=== PATIENT | male | born 1945 | race Caucasian/White ===

== ENCOUNTER 2022-12-10 13:32 | Observation (INO) | payer MEDICARE, OTHER, SELFPAY ==
[2022-12-10] VITALS (34 sets, daily range): BP systolic 135–187; BP diastolic 65–103; PULSE 56–85; RESP 13–14; TEMP 36.8; O2SAT 91–99; BMI 19.2
--- NOTE | 2022-12-10 13:44 | DI.CT.S_ITS ---
PROCEDURE: CT HEAD/BRAIN WO CON INDICATIONS: blurred vision (L) TECHNIQUE: Noncontrast 4.5 mm thick angled axial sections acquired from the foramen magnum to the vertex, with coronal and sagittal reformats. For radiation dose reduction, the following was used: automated exposure control, adjustment of mA and/or kV according to patient size. COMPARISON: None. FINDINGS: Image quality: Excellent. CSF spaces: Basal cisterns are patent. No extra-axial fluid collections. The ventricles are symmetric in size and shape. Brain: There is a focal cee-white junction region hemorrhage centered in the left posterior parieto-occipital region measuring 2.3 x 1.9 x 2.3 cm. There is mild surrounding vasogenic edema. There is no significant mass effect or shift. No other hemorrhages are identified. No identifiable masses are seen. . There is cerebral volume loss for age, with resultant ventricular and sulcal prominence. There are periventricular and deep white matter chronic small vessel ischemic changes. There is intracranial internal carotid artery atherosclerosis. Skull and face: Calvarium and visualized facial bones appear intact, without suspicious lesions. Sinuses: Visualized sinuses and mastoids are clear. IMPRESSION: 1. 2.3 cm maximum diameter parenchymal hemorrhage, centered in the left posterior parieto-occipital cee-white junction region. Differential diagnosis includes hypertensive hemorrhage versus amyloid angiopathy versus hemorrhagic mass. Comment: Findings were discussed with Dr. Brito at the time of study dictation. Dictated by: Zheng Braun M.D. on 12/10/2022 at 14:12 Approved by: Zheng Braun M.D. on 12/10/2022 at 14:17
[2022-12-10 14:22] LABS: Add Manual Diff / Slide Review NO; Basophils Absolute Auto 100 /uL (0-100); Basophils Percent Auto 0.8 % (0-2); Eosinophils Absolute Auto 100 /uL (0-450); Eosinophils Percent Auto 2.1 % (2-4); Hematocrit 41.5 % (41-53); Hemoglobin 14.3 g/dL (13.5-17.5); Lymphocytes Absolute Auto 1900 /uL (1100-4500); Lymphocytes Percent Auto 27.3 % (25-40); Mean Corpuscular HGB Conc 34.5 % (30-36); Mean Corpuscular Hemoglobin 32.4 PG (26-34); Mean Corpuscular Volume 94.1 fL (80-100); Monocytes Absolute Auto 700 /uL (0-900); Monocytes Percent Auto 9.4 % (3-14); Neutrophils Absolute Auto 4300 /uL (1500-7000); Neutrophils Percent Auto 60.4 % (50-75); Platelet Count 223 X10^3/uL (150-400); Red Blood Cell Count 4.41 X10^6/uL (4.5-5.9); White Blood Cell Count 7.1 X10^3/uL (4.5-11.0)
--- NOTE | 2022-12-10 14:27 | ED_ITS ---
HPI - Neuro Symptoms/Deficit <DO Eric Colon Last Filed: 12/12/22 12:36> General Chief Complaint: Neuro Symptoms/Deficit Stated Complaint: sent by blurred vision/headache T-7 Time Seen by Provider: 12/10/22 14:03 Source: patient Mode of arrival: Ambulatory Limitations: no limitations History of Present Illness HPI Narrative: This is a 77-year-old male with dyslipidemia who is not anticoagulated who comes with complaint of headache that occurred on 06 of December. Patient states he would about 5 hours headache behind his left eye and has had blurry vision since then. Patient states he is not really sure if it matters of his eyes are closed left versus right. He states he notices it with close vision or beating. He states he has had blurry vision 1 or 2 times a month in the past but never had a headache associated. Patient states no headache since then. He denies any chest pain, no shortness of breath, no nausea or vomiting. No numbness, tingling or weakness. He is had normal speech. No new facial droop. Patient has not had any issues with ambulation or gait. He is not had similar symptoms in the past. He denies any falls or trauma. Patient denies any aspirin, Plavix or other anticoagulants. He states he is had back surgery x2 he does have persistent neurogenic bladder, he has no sensation in the perineal area. 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 He states no known drug allergies. No tobacco, no alcohol, no illicit. Dr. Umm Sanchez is his primary care. On Anticoagulants: No Related Data Home Medications Medication Instructions Recorded Confirmed atorvastatin 10 mg tablet 10 mg 1XD 12/11/22 12/11/22 gabapentin 100 mg capsule 100 mg PRN Back Pain 12/11/22 Allergies Allergy/AdvReac Type Severity Reaction Status Date / Time No Known Drug Allergies Allergy Verified 12/10/22 13:42 Review of Systems <DO Eric Colon Last Filed: 12/12/22 12:36> Review of Systems ROS Unobtainable: All systems reviewed & are unremarkable except as noted in HPI and below Hematologic/Lymphatic On Anticoagulants: No Patient History <DO Eric Colon Last Filed: 12/12/22 12:36> Social History household members: spouse Smoking Status: Former smoker Smoking Status: Former smoker alcohol intake frequency: 0-2 drinks per day Substance Use Type: does not use Exam <Clair Brito DO - Last Filed: 12/12/22 12:36> Narrative Exam Narrative: GEN: Thin elderly male, alert and oriented x 3, patient appears to be in mild distress. HEENT: Atraumatic, pupils are equal round reactive to light, extraocular movements are intact, nares are clear, TMs are clear with no fluid, there is no conjunctival pallor. Throat is clear without any exudates, erythema, tonsillar enlargement or uvular deviation, no facial droop. HEART: Regular rate and rhythm without murmur, clicks, rubs. No carotid bruits, pulses are equal in upper and lower extremities LUNGS:Lungs clear to auscultation, no wheezes, rales, crackles, chest moves symmetrically ABD:bowel sounds normal, soft, non-tender, no guarding, rebound, rigidity, no masses noted, no hepatosplenomegaly :No CVA tenderness, [male/female exam] MSCL: Non-tender, no muscle atrophy, muscles strength 5/5 upper and lower extremities, full range of motion, normal gait NEURO:CN 2-12 intact, sensation normal, reflexes 2/4 upper and lower extremities. finger nose finger test normal, heel zaragoza test normal, romberg normal Initial Vital Signs Initial Vital Signs: Vital Signs Temperature 98.2 F 12/10/22 13:38 Pulse Rate 56 L 12/10/22 13:38 Respiratory Rate 14 12/10/22 13:38 Blood Pressure 186/85 H 12/10/22 13:38 Pulse Oximetry 99 12/10/22 13:38 Oxygen Delivery Method Room Air 12/10/22 13:38 <Josue Prescott DO - Last Filed: 12/11/22 03:15> Initial Vital Signs Initial Vital Signs: Vital Signs Temperature 98.2 F 12/10/22 13:38 Pulse Rate 56 L 12/10/22 13:38 Respiratory Rate 14 12/10/22 13:38 Blood Pressure 186/85 H 12/10/22 13:38 Pulse Oximetry 99 12/10/22 13:38 Oxygen Delivery Method Room Air 12/10/22 13:38 Scores <Clair Brito, DO - Last Filed: 12/12/22 12:36> GCS Stan coma scale eye opening: Spontaneous Rawson coma scale verbal response: Orientated Stan coma scale motor response: Obey commands Rawson coma scale total score: 15 NIH Stroke Scale Level of Conciousness: Alert, keenly responsive Ask month/age: Answers both questions correctly. Open/close eyes, close hand: Performs both tasks correctly Best gaze horizontal: Normal Visual santos: No visual loss Facial palsy: Normal symetrical movement Left arm drift: No drift for full 10 sec Right arm drift: No drift for full 10 sec Left leg drift: No drift for full 5 sec Right leg drift: No drift for full 5 sec Limb ataxia: Absent Sensory on face/arms/legs: Normal, no sensory loss Best language: No aphasia, normal Dysarthria: Normal Extinction or inattention: No abnormality Total NIH Stroke scale score: 0 <Josue Prescott DO - Last Filed: 12/11/22 03:15> GCS Stan coma scale total score: 15 NIH Stroke Scale Total NIH Stroke scale score: 0 Course <Clair Brito, DO - Last Filed: 12/12/22 12:36> Orders Ordered: Discontinued Medications Acetaminophen (Acetaminophen 325 Mg Tablet) 650 mg PO Q6H PRN PRN Reason: Fever/Mild Pain (1-3) Atorvastatin Calcium (Atorvastatin 20 Mg Tablet) 10 mg PO BEDTIME JIGNA Lisinopril (Lisinopril 5 Mg Tablet) 5 mg PO NOW ONE Stop: 12/10/22 15:00 Last Admin: 12/10/22 15:29 Dose: 5 mg Documented By: SB Naloxone HCl (Naloxone 0.4 Mg/Ml Vial) 0.2 mg IV Q2MIN PRN PRN Reason: Opiate Reversal Nifedipine (Nifedipine 30 Mg Tab Er) 30 mg PO NOW ONE Stop: 12/11/22 00:42 Last Admin: 12/11/22 02:13 Dose: 30 mg Documented By: CS Ondansetron HCl (Ondansetron 4 Mg/2 Ml Inj) 4 mg IV Q8HR PRN PRN Reason: Nausea And Vomiting Oxycodone HCl (Oxycodone Ir 5 Mg Tablet) 5 mg PO Q3H PRN PRN Reason: Pain, Moderate (4-6) Vital Signs Vital signs: Vital Signs - 8 hr 12/10/22 19:30 12/10/22 19:30 12/10/22 19:45 Pulse Rate 73 Blood Pressure 172/80 H 169/82 H Pulse Oximetry 98 12/10/22 19:45 12/10/22 20:00 12/10/22 20:00 Pulse Rate 66 65 Blood Pressure 157/68 H Pulse Oximetry 97 98 12/10/22 20:30 12/10/22 20:30 12/10/22 21:00 Pulse Rate 69 69 Blood Pressure 169/80 H Pulse Oximetry 97 97 12/10/22 21:01 12/10/22 21:01 12/10/22 21:30 Pulse Rate 68 Blood Pressure 187/86 H 146/73 H Pulse Oximetry 95 12/10/22 21:30 12/10/22 22:00 12/10/22 22:00 Pulse Rate 58 L 59 L Blood Pressure 146/77 H Pulse Oximetry 96 97 12/10/22 22:29 12/10/22 22:30 12/10/22 22:30 Pulse Rate 58 L 64 Blood Pressure 159/103 H Pulse Oximetry 95 96 12/10/22 23:00 12/10/22 23:01 12/10/22 23:01 Pulse Rate 75 75 Blood Pressure 142/74 H Pulse Oximetry 97 97 <Josue Prescott, DO - Last Filed: 12/11/22 03:15> Orders Ordered: Discontinued Medications Acetaminophen (Acetaminophen 325 Mg Tablet) 650 mg PO Q6H PRN PRN Reason: Fever/Mild Pain (1-3) Atorvastatin Calcium (Atorvastatin 20 Mg Tablet) 10 mg PO BEDTIME JIGNA Lisinopril (Lisinopril 5 Mg Tablet) 5 mg PO NOW ONE Stop: 12/10/22 15:00 Last Admin: 12/10/22 15:29 Dose: 5 mg Documented By: SB Naloxone HCl (Naloxone 0.4 Mg/Ml Vial) 0.2 mg IV Q2MIN PRN PRN Reason: Opiate Reversal Nifedipine (Nifedipine 30 Mg Tab Er) 30 mg PO NOW ONE Stop: 12/11/22 00:42 Last Admin: 12/11/22 02:13 Dose: 30 mg Documented By: CS Ondansetron HCl (Ondansetron 4 Mg/2 Ml Inj) 4 mg IV Q8HR PRN PRN Reason: Nausea And Vomiting Oxycodone HCl (Oxycodone Ir 5 Mg Tablet) 5 mg PO Q3H PRN PRN Reason: Pain, Moderate (4-6) Vital Signs Vital signs: Vital Signs - 8 hr 12/10/22 19:30 12/10/22 19:30 12/10/22 19:45 Pulse Rate 73 Blood Pressure 172/80 H 169/82 H Pulse Oximetry 98 12/10/22 19:45 12/10/22 20:00 12/10/22 20:00 Pulse Rate 66 65 Blood Pressure 157/68 H Pulse Oximetry 97 98 12/10/22 20:30 12/10/22 20:30 12/10/22 21:00 Pulse Rate 69 69 Blood Pressure 169/80 H Pulse Oximetry 97 97 12/10/22 21:01 12/10/22 21:01 12/10/22 21:30 Pulse Rate 68 Blood Pressure 187/86 H 146/73 H Pulse Oximetry 95 12/10/22 21:30 12/10/22 22:00 12/10/22 22:00 Pulse Rate 58 L 59 L Blood Pressure 146/77 H Pulse Oximetry 96 97 12/10/22 22:29 12/10/22 22:30 12/10/22 22:30 Pulse Rate 58 L 64 Blood Pressure 159/103 H Pulse Oximetry 95 96 12/10/22 23:00 12/10/22 23:01 12/10/22 23:01 Pulse Rate 75 75 Blood Pressure 142/74 H Pulse Oximetry 97 97 MDM - Neuro Symptoms/Deficit <Clair Brito, DO - Last Filed: 12/12/22 12:36> Lab Data 12/10/22 14:14 12/10/22 14:14 Labs: Lab Results 12/10/22 12/10/22 12/10/22 Range/Units 14:14 14:14 14:14 WBC 7.1 (4.5-11.0) X10^3/uL RBC 4.41 L (4.5-5.9) X10^6/uL Hgb 14.3 (13.5-17.5) g/dL Hct 41.5 (41-53) % MCV 94.1 (80-100) fL MCH 32.4 (26-34) PG MCHC 34.5 (30-36) % RDW 14.0 (11.6-14.8) % Plt Count 223 (150-400) X10^3/uL Neut % (Auto) 60.4 (50-75) % Lymph % (Auto) 27.3 (25-40) % Faulk % (Auto) 9.4 (3-14) % Eos % (Auto) 2.1 (2-4) % Baso % (Auto) 0.8 (0-2) % Neut # (Auto) 4300 (9771-2118) /uL Lymph # (Auto) 1900 (3756-2003) /uL Faulk # (Auto) 700 (0-900) /uL Eos # (Auto) 100 (0-450) /uL Baso # (Auto) 100 (0-100) /uL PT 11.5 (10.1-12.7) SECONDS INR 1.0 (0.9-1.3) APTT 37 H (26-36) SECONDS Sodium 138 (137-145) mmol/L Potassium 4.1 (3.4-5.1) mmol/L Chloride 103 (98-107) mmol/L Carbon Dioxide 26 (22-32) mmol/L BUN 21 H (9-20) mg/dL Creatinine 0.93 (0.66-1.25) mg/dL Estimated GFR > 60 (>60) mL/min BUN/Creatinine Ratio 22.6 H (6-22) Glucose 104 (80-110) mg/dL Calcium 8.5 (8.4-10.2) mg/dL Magnesium 2.0 (1.6-2.3) mg/dL Total Bilirubin 1.1 (0.2-1.3) mg/dL AST 33 (17-59) IU/L ALT 27 (<50) IU/L Alkaline Phosphatase 77 (38-126) U/L Total Creatine Kinase 212 H (55-170) U/L CK-MB (CK-2) 3.24 H (<2.37) ng/mL CK-MB (CK-2) Rel Index 1.5 (1.5-5.0) % Troponin I < 0.012 (0.01-0.034) ng/mL Total Protein 7.1 (6.3-8.2) g/dL Albumin 4.2 (3.5-5.0) g/dL Globulin 2.9 (1.7-4.1) g/dL Albumin/Globulin Ratio 1.4 (1.0-2.8) U Opiates 300ng/mL cut (Negative) Ur Oxycodone Screen (Negative) Urine Methadone Screen (Negative) Ur Barbiturates Screen (Negative) U Tricyclic Antidepress (Negative) Ur Phencyclidine Scrn (Negative) Ur Amphetamines Screen (Negative) U Methamphetamines Scrn (Negative) Ur MDMA Scrn (Ecstasy) (Negative) U Benzodiazepines Scrn (Negative) Urine Cocaine Screen (Negative) U Marijuana (THC) Screen (Negative) SARS-CoV-2 (PCR) (Negative) 12/10/22 12/10/22 Range/Units 14:21 15:53 WBC (4.5-11.0) X10^3/uL RBC (4.5-5.9) X10^6/uL Hgb (13.5-17.5) g/dL Hct (41-53) % MCV (80-100) fL MCH (26-34) PG MCHC (30-36) % RDW (11.6-14.8) % Plt Count (150-400) X10^3/uL Neut % (Auto) (50-75) % Lymph % (Auto) (25-40) % Faulk % (Auto) (3-14) % Eos % (Auto) (2-4) % Baso % (Auto) (0-2) % Neut # (Auto) (4036-4016) /uL Lymph # (Auto) (8681-3252) /uL Faulk # (Auto) (0-900) /uL Eos # (Auto) (0-450) /uL Baso # (Auto) (0-100) /uL PT (10.1-12.7) SECONDS INR (0.9-1.3) APTT (26-36) SECONDS Sodium (137-145) mmol/L Potassium (3.4-5.1) mmol/L Chloride (98-107) mmol/L Carbon Dioxide (22-32) mmol/L BUN (9-20) mg/dL Creatinine (0.66-1.25) mg/dL Estimated GFR (>60) mL/min BUN/Creatinine Ratio (6-22) Glucose (80-110) mg/dL Calcium (8.4-10.2) mg/dL Magnesium (1.6-2.3) mg/dL Total Bilirubin (0.2-1.3) mg/dL AST (17-59) IU/L ALT (<50) IU/L Alkaline Phosphatase (38-126) U/L Total Creatine Kinase (55-170) U/L CK-MB (CK-2) (<2.37) ng/mL CK-MB (CK-2) Rel Index (1.5-5.0) % Troponin I (0.01-0.034) ng/mL Total Protein (6.3-8.2) g/dL Albumin (3.5-5.0) g/dL Globulin (1.7-4.1) g/dL Albumin/Globulin Ratio (1.0-2.8) U Opiates 300ng/mL cut Negative (Negative) Ur Oxycodone Screen Negative (Negative) Urine Methadone Screen Negative (Negative) Ur Barbiturates Screen Negative (Negative) U Tricyclic Antidepress Negative (Negative) Ur Phencyclidine Scrn Negative (Negative) Ur Amphetamines Screen Negative (Negative) U Methamphetamines Scrn Negative (Negative) Ur MDMA Scrn (Ecstasy) Negative (Negative) U Benzodiazepines Scrn Negative (Negative) Urine Cocaine Screen Negative (Negative) U Marijuana (THC) Screen Negative (Negative) SARS-CoV-2 (PCR) Negative (Negative) Point of Care Testing Glucose POC 104 Urine Dip Bedside Urine Glucose Negative Bedside Urine Bilirubin - Negative Bedside Urine Ketone - Negative Urine Specific [place] 1.010 Bedside Urine Occult Blood - Negative Bedside Urine pH 6.5 Bedside Urine Protein - Negative Bedside Urine Urobilinogen - Negative Bedside Urine Nitrite - Negative Bedside Urine Leukocytes - Negative Esterase Imaging Data CT scan - head: Radiologist's Impression: Close Head CT (Signed) Zheng Braun - 12/10/22 Launch?[address] [address] [address] Scan Report Signed Patient: Eugene Contreras MR#: [id number] : 1945 Acct:[id number] Age/Sex: 77 / M Date of Service: 12/10/22 Loc: ED Accession Number: [id number] ?? Procedure: CT head/brain wo con Ordering Provider: Clair Brito D.O. PROCEDURE:? CT HEAD/BRAIN WO CON ? INDICATIONS:? blurred vision (L) ? TECHNIQUE:? Noncontrast 4.5 mm thick angled axial sections acquired from the foramen magnum to the vertex, with coronal and sagittal reformats.? For radiation dose reduction, the following was used:? automated exposure control, adjustment of mA and/or kV according to patient size.? ? COMPARISON:? None. ? FINDINGS:? Image quality:? Excellent.? ? CSF spaces:? Basal cisterns are patent.? No extra-axial fluid collections.? The ventricles are symmetric in size and shape.? ? Brain:? There is a focal cee-white junction region hemorrhage centered in the left posterior parieto-occipital region measuring 2.3 x 1.9 x 2.3 cm.? There is mild surrounding vasogenic edema.? There is no significant mass effect or shift.? No other hemorrhages are identified.? No identifiable masses are seen. .? There is cerebral volume loss for age, with resultant ventricular and sulcal prominence.? There are periventricular and deep white matter chronic small vessel ischemic changes.? There is intracranial internal carotid artery atherosclerosis.? ? Skull and face:? Calvarium and visualized facial bones appear intact, without suspicious lesions.? ? Sinuses:? Visualized sinuses and mastoids are clear.? ? IMPRESSION:? ? 1. 2.3 cm maximum diameter parenchymal hemorrhage, centered in the left posterior parieto-occipital cee-white junction region.? Differential diagnosis includes hypertensive hemorrhage versus amyloid angiopathy versus hemorrhagic mass. ? Comment: Findings were discussed with Dr. Brito at the time of study dictation.? ? ? Dictated by: Zheng Braun M.D. on 12/10/2022 at 14:12 ? ? Approved by: Zheng Braun M.D. on 12/10/2022 at 14:17?? CTA - brain/neck: Radiologist's Impression: [address] [address] [address] Scan Report Signed Patient: Eugene Contreras MR#: [id number] : 1945 Acct:[id number] Age/Sex: 77 / M Date of Service: 12/10/22 Loc: ED Accession Number: [id number] ?? Procedure: CT angio head and neck Ordering Provider: Clair Brito D.O. /PROCEDURE:? CT ANGIO HEAD AND NECK ? INDICATIONS:? intraparenchymal bleed ? TECHNIQUE:? After the administration of intravenous contrast, 1 mm thick sections acquired from the aortic arch through the [place] of [place].? Post-contrast 4.5 mm thick sections then re-acquired from the foramen magnum to the vertex.? 3-dimensional uewifef-qgrvarubn-rxfkcokaec (MIP) and/or volume rendering reformats were acquired of the central intracranial vasculature and neck separately. For radiation dose reduction, the following was used:? automated exposure control, adjustment of mA and/or kV according to patient size.? ? COMPARISON:? [facility], CT, CT HEAD/BRAIN WO CON, 12/10/2022, 13:52. ? FINDINGS:? Image quality:? Excellent.? ? BRAIN:? CSF spaces:? Ventricles are normal in size and shape.? Basal cisterns are patent.? No extra-axial fluid collections.? ? Brain:? No midline shift.? Again noted is a 2.3 cm maximum diameter cee-white junction region parenchymal hemorrhage in the left posterior parieto-occipital region, unchanged.? No new hemorrhages.? Age-related volume loss and small vessel ischemic change. ? Skull and face:? Calvarium and facial bones appear intact, without suspicious lesions.? Orbits appear normal.? ? Sinuses:? Sinuses and mastoids are clear.? ? HEAD CT ANGIOGRAPHY:? Anterior circulation:? Intracranial internal carotid arteries are normal in size and flow.? The flow within the paired anterior cerebral arteries is normal and symmetric.? The flow within the middle cerebral arteries is normal and symmetric.? The ante rior communicating artery is seen.? No aneurysms are seen.? ? Posterior circulation:? Visualized portions of the vertebral arteries demonstrate normal caliber, and join to form a normal appearing basilar artery.? Flow within the posterior cerebral arteries is normal and symmetric.? No aneurysms are seen.? ? NECK CT ANGIOGRAPHY:? Carotid system:? The great vessels demonstrate a conventional anatomy as they arise from the aortic arch.? The origins of the common carotid arteries appear patent.? The common carotid arteries demonstrate normal caliber and courses.? Bilateral carotid bifurcation calcifications.? Mild bilateral proximal internal carotid artery stenosis, less than 50%. ? Posterior circulation:? The origins of the vertebral arteries both appear widely patent.? The more superior extracranial portions of both vertebral arteries also demonstrate normal courses and calibers.? They join to form a normal appearing basilar artery.? ? Soft tissues:? Visualized neck soft tissues demonstrate no suspicious abnormalities.? Right apical pleural parenchymal scarring with calcification, likely representing sequelae of chronic granulomatous disease.? ? Bones:? No suspicious bony lesions.? Visualized cervical spine appears normally aligned.? IMPRESSION:? ? 1. Unchanged parenchymal hemorrhage, cee-white junction region, left parieto- occipital region. ? 2. Unremarkable CTA head. ? 3. Bilateral mild internal carotid artery stenosis, less than 50%.? ? Any quantitative measurements of stenosis were performed using NASCET criteria.? ? ? Dictated by: Zheng Braun M.D. on 12/10/2022 at 16:00 ? ? Approved by: Zheng Braun M.D. on 12/10/2022 at 16:06?? ECG Data Attestation: I personally reviewed and interpreted this ECG as follows: Prior ECG tracings: not available for review Interpretation: Sinus rhythm occasional PVCs. Rate of 60 9p are 160 QRS is 72 and QTC 420. Patient has PVC. No acute ST elevation depression noted. MDM Narrative Medical decision making narrative: This is a 77-year-old who presents with complaint of headache 1 week ago and blurry vision since. Headache was behind the left eye region. Patient does not have any acute neurologic changes. Head CT showed intraparenchymal bleed about 2.5 cm in size. Patient's blood pressure is elevated initially 180s trending down words upon initial arrival. Patient does not recall any trauma, he does not have any anticoagulation. Labs including CBC are overall reassuring, patient's BUN is 21, CK is 212 tropo francesca is negative. Coags are negative. Patient came in at 180 systolic but is 160 on recheck. Spoke with Dr. Villa, neuro surgery at [facility]. Patient she recommends repeat CT at 6 hours. she also recommend CT angio, goal of systolic pressure less than 160 typically but as we suspect this has been 5 days she would recommend starting p.o. enalapril 5 mg in ED based on current BPs, if patient continues to be above or elevated greater than a systolic of 160 can do IV nicardipine drip but otherwise would just try to move slowly 2 normotensive. If patient's blood pressures are controlled and CT angio is negative as well as non-con CT is stable at 6 hours patient could conceivably follow-up with them for MRI to evaluate for amyloid angiopathy or other cause. CT angio does not show any significant change. Plan for call back and follow-up after CT images are obtained. Patient signed out to Dr. Prescott while awaiting repeat head CT plan for follow up with neurology to discuss follow up to findings and next steps. 2050 - call back from Dr. Santiago ( Neuro). We have reviewed the case as well as imaging, noting the lack of interval change. Though there is no change he strongly recommends patient be admitted for strict blood pressure control and recommends MRI 2099 - hospitalist (Juliane) happy to accept Stroke Core Measures Contraindications for TPA in CVA: Active Internal Bleeding or Acute Fx (intraparenchymal bleed) <Josue Prescott, DO - Last Filed: 12/11/22 03:15> Lab Data Labs: Lab Results 12/10/22 12/10/22 12/10/22 Range/Units 14:14 14:14 14:14 WBC 7.1 (4.5-11.0) X10^3/uL RBC 4.41 L (4.5-5.9) X10^6/uL Hgb 14.3 (13.5-17.5) g/dL Hct 41.5 (41-53) % MCV 94.1 (80-100) fL MCH 32.4 (26-34) PG MCHC 34.5 (30-36) % RDW 14.0 (11.6-14.8) % Plt Count 223 (150-400) X10^3/uL Neut % (Auto) 60.4 (50-75) % Lymph % (Auto) 27.3 (25-40) % Faulk % (Auto) 9.4 (3-14) % Eos % (Auto) 2.1 (2-4) % Baso % (Auto) 0.8 (0-2) % Neut # (Auto) 4300 (7711-9321) /uL Lymph # (Auto) 1900 (5602-7780) /uL Faulk # (Auto) 700 (0-900) /uL Eos # (Auto) 100 (0-450) /uL Baso # (Auto) 100 (0-100) /uL PT 11.5 (10.1-12.7) SECONDS INR 1.0 (0.9-1.3) APTT 37 H (26-36) SECONDS Sodium 138 (137-145) mmol/L Potassium 4.1 (3.4-5.1) mmol/L Chloride 103 (98-107) mmol/L Carbon Dioxide 26 (22-32) mmol/L BUN 21 H (9-20) mg/dL Creatinine 0.93 (0.66-1.25) mg/dL Estimated GFR > 60 (>60) mL/min BUN/Creatinine Ratio 22.6 H (6-22) Glucose 104 (80-110) mg/dL Calcium 8.5 (8.4-10.2) mg/dL Magnesium 2.0 (1.6-2.3) mg/dL Total Bilirubin 1.1 (0.2-1.3) mg/dL AST 33 (17-59) IU/L ALT 27 (<50) IU/L Alkaline Phosphatase 77 (38-126) U/L Total Creatine Kinase 212 H (55-170) U/L CK-MB (CK-2) 3.24 H (<2.37) ng/mL CK-MB (CK-2) Rel Index 1.5 (1.5-5.0) % Troponin I < 0.012 (0.01-0.034) ng/mL Total Protein 7.1 (6.3-8.2) g/dL Albumin 4.2 (3.5-5.0) g/dL Globulin 2.9 (1.7-4.1) g/dL Albumin/Globulin Ratio 1.4 (1.0-2.8) U Opiates 300ng/mL cut (Negative) Ur Oxycodone Screen (Negative) Urine Methadone Screen (Negative) Ur Barbiturates Screen (Negative) U Tricyclic Antidepress (Negative) Ur Phencyclidine Scrn (Negative) Ur Amphetamines Screen (Negative) U Methamphetamines Scrn (Negative) Ur MDMA Scrn (Ecstasy) (Negative) U Benzodiazepines Scrn (Negative) Urine Cocaine Screen (Negative) U Marijuana (THC) Screen (Negative) SARS-CoV-2 (PCR) (Negative) 03/17/23 03/17/23 Range/Units 14:21 15:53 WBC (4.5-11.0) X10^3/uL RBC (4.5-5.9) X10^6/uL Hgb (13.5-17.5) g/dL Hct (41-53) % MCV (80-100) fL MCH (26-34) PG MCHC (30-36) % RDW (11.6-14.8) % Plt Count (150-400) X10^3/uL Neut % (Auto) (50-75) % Lymph % (Auto) (25-40) % Faulk % (Auto) (3-14) % Eos % (Auto) (2-4) % Baso % (Auto) (0-2) % Neut # (Auto) (3693-2095) /uL Lymph # (Auto) (1637-2562) /uL Faulk # (Auto) (0-900) /uL Eos # (Auto) (0-450) /uL Baso # (Auto) (0-100) /uL PT (10.1-12.7) SECONDS INR (0.9-1.3) APTT (26-36) SECONDS Sodium (137-145) mmol/L Potassium (3.4-5.1) mmol/L Chloride (98-107) mmol/L Carbon Dioxide (22-32) mmol/L BUN (9-20) mg/dL Creatinine (0.66-1.25) mg/dL Estimated GFR (>60) mL/min BUN/Creatinine Ratio (6-22) Glucose (80-110) mg/dL Calcium (8.4-10.2) mg/dL Magnesium (1.6-2.3) mg/dL Total Bilirubin (0.2-1.3) mg/dL AST (17-59) IU/L ALT (<50) IU/L Alkaline Phosphatase (38-126) U/L Total Creatine Kinase (55-170) U/L CK-MB (CK-2) (<2.37) ng/mL CK-MB (CK-2) Rel Index (1.5-5.0) % Troponin I (0.01-0.034) ng/mL Total Protein (6.3-8.2) g/dL Albumin (3.5-5.0) g/dL Globulin (1.7-4.1) g/dL Albumin/Globulin Ratio (1.0-2.8) U Opiates 300ng/mL cut Negative (Negative) Ur Oxycodone Screen Negative (Negative) Urine Methadone Screen Negative (Negative) Ur Barbiturates Screen Negative (Negative) U Tricyclic Antidepress Negative (Negative) Ur Phencyclidine Scrn Negative (Negative) Ur Amphetamines Screen Negative (Negative) U Methamphetamines Scrn Negative (Negative) Ur MDMA Scrn (Ecstasy) Negative (Negative) U Benzodiazepines Scrn Negative (Negative) Urine Cocaine Screen Negative (Negative) U Marijuana (THC) Screen Negative (Negative) SARS-CoV-2 (PCR) Negative (Negative) Point of Care Testing Glucose POC 104 Urine Dip Bedside Urine Glucose Negative Bedside Urine Bilirubin - Negative Bedside Urine Ketone - Negative Urine Specific [place] 1.010 Bedside Urine Occult Blood - Negative Bedside Urine pH 6.5 Bedside Urine Protein - Negative Bedside Urine Urobilinogen - Negative Bedside Urine Nitrite - Negative Bedside Urine Leukocytes - Negative Esterase MDM Narrative Medical decision making narrative: This is a 77-year-old who presents with complaint of headache 1 week ago and blurry vision since. Headache was behind the left eye region. Patient does not have any acute neurologic changes. Head CT showed intraparenchymal bleed about 2.5 cm in size. Patient's blood pressure is elevated initially 180s trending down words upon initial arrival. Patient does not recall any trauma, he does not have any anticoagulation. Labs including CBC are overall reassuring, patient's BUN is 21, CK is 212 troponin is negative. Coags are negative. Patient came in at 180 systolic but is 160 on recheck. Spoke with Dr. Villa, neuro surgery at [facility]. Patient she recommends repeat CT at 6 hours. she also recommend CT angio, goal of systolic pressure less than 160 typically but as we suspect this has been 5 days she would recommend starting p.o. enalapril 5 mg, if patient continues to be above or elevated greater than a systolic of 160 can do IV nicardipine drip but otherwise would just try to move slowly 2 normotensive. If patient's blood pressures are controlled and CT angio is negative as well as non-con CT is stable at 6 hours patient could conceivably follow-up with them for MRI to evaluate for amyloid angiopathy or other cause. CT angio does not show any significant change. Plan for call back and follow-up after CT images are obtained. Patient signed out to Dr. Prescott while awaiting repeat head CT plan for follow up with neurology. 2050 - call back from Dr. Santiago ( Neuro). We have reviewed the case as well as imaging, noting the lack of interval change. Though there is no change he strongly recommends patient be admitted for strict blood pressure control and recommends MRI 2099 - hospitalist (Juliane) happy to accept <Josue Prescott, - Last Filed: 12/11/22 03:15> Critical Care Time Critical Care Time: Yes Total Critical Care Time: 30 Attestation: The high probability of a clinically significant, sudden or life threatening deterioration of the [Neuro] system(s) required my full and direct attention, intervention and personal management. The aggregate critical care time was [30] minutes. This time is in addition to time spent performing reported procedures but includes the following: [x] Data Review and interpretation [x] Patient assessment and monitoring of vital signs [x] Documentation [x] Medication orders and management Discharge Plan Departure Patient Disposition: Admitted as Observation Clinical Impression: Intraparenchymal hemorrhage of brain Admit Date/Time: 12/10/22 23:10 Admit Provider: Harsh Cardozo
--- NOTE | 2022-12-10 14:29 | PC.NURSE ---
Pt reports that starting on 12/04/22 that during lunch patient began experiencing a headache and some blurry vision in the left eye. Pt stated headache resolved in a few hours, but blurry vision from left eye remains only at close range. Pt denies chest pain, SOB or any other symptoms. Pt recently saw eye doctor who said vision was fine. 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
[2022-12-10 14:33] LABS: Prothrombin Time 11.5 SECONDS (10.1-12.7)
[2022-12-10 14:35] LABS: PTT Partial Thromboplastin Tim 37 SECONDS (26-36)
[2022-12-10 14:38] LABS: Alanine Aminotransferase 27 IU/L (<50); Albumin 4.2 g/dL (3.5-5.0); Albumin Globulin Ratio 1.4 (1.0-2.8); Alkaline Phosphatase 77 U/L (38-126); Aspartate Aminotransferase 33 IU/L (17-59); BUN Creatinine Ratio 22.6 (6-22); Bilirubin Total 1.1 mg/dL (0.2-1.3); Blood Urea Nitrogen 21 mg/dL (9-20); Calcium 8.5 mg/dL (8.4-10.2); Carbon Dioxide 26 mmol/L (22-32); Chloride 103 mmol/L (98-107); Creatine Kinase 212 U/L (55-170); Estimated Glomerular Filt Rate > 60 mL/min (>60); Globulin 2.9 g/dL (1.7-4.1); Glucose 104 mg/dL (80-110); HEMOLYSIS < 15 (0-50); Potassium 4.1 mmol/L (3.4-5.1); Sodium 138 mmol/L (137-145); Total Protein 7.1 g/dL (6.3-8.2)
[2022-12-10 14:49] LABS: Troponin I < 0.012 ng/mL (0.01-0.034)
--- NOTE | 2022-12-10 15:00 | DI.CT.S_ITS ---
/PROCEDURE: CT ANGIO HEAD AND NECK INDICATIONS: intraparenchymal bleed TECHNIQUE: After the administration of intravenous contrast, 1 mm thick sections acquired from the aortic arch through the [place] of [place]. Post-contrast 4.5 mm thick sections then re-acquired from the foramen magnum to the vertex. 3-dimensional tntihag-jmegewwrx-gnbhjnkjvx (MIP) and/or volume rendering reformats were acquired of the central intracranial vasculature and neck separately. For radiation dose reduction, the following was used: automated exposure control, adjustment of mA and/or kV according to patient size. COMPARISON: [facility], CT, CT HEAD/BRAIN WO CON, 12/10/2022, 13:52. FINDINGS: Image quality: Excellent. BRAIN: CSF spaces: Ventricles are normal in size and shape. Basal cisterns are patent. No extra-axial fluid collections. Brain: No midline shift. Again noted is a 2.3 cm maximum diameter cee-white junction region parenchymal hemorrhage in the left posterior parieto-occipital region, unchanged. No new hemorrhages. Age-related volume loss and small vessel ischemic change. Skull and face: Calvarium and facial bones appear intact, without suspicious lesions. Orbits appear normal. Sinuses: Sinuses and mastoids are clear. HEAD CT ANGIOGRAPHY: Anterior circulation: Intracranial internal carotid arteries are normal in size and flow. The flow within the paired anterior cerebral arteries is normal and symmetric. The flow within the middle cerebral arteries is normal and symmetric. The anterior communicating artery is seen. No aneurysms are seen. Posterior circulation: Visualized portions of the vertebral arteries demonstrate normal caliber, and join to form a normal appearing basilar artery. Flow within the posterior cerebral arteries is normal and symmetric. No aneurysms are seen. NECK CT ANGIOGRAPHY: Carotid system: The great vessels demonstrate a conventional anatomy as they arise from the aortic arch. The origins of the common carotid arteries appear patent. The common carotid arteries demonstrate normal caliber and courses. Bilateral carotid bifurcation calcifications. Mild bilateral proximal internal carotid artery stenosis, less than 50%. Posterior circulation: The origins of the vertebral arteries both appear widely patent. The more superior extracranial portions of both vertebral arteries also demonstrate normal courses and calibers. They join to form a normal appearing basilar artery. Soft tissues: Visualized neck soft tissues demonstrate no suspicious abnormalities. Right apical pleural parenchymal scarring with calcification, likely representing sequelae of chronic granulomatous disease. Bones: No suspicious bony lesions. Visualized cervical spine appears normally aligned. IMPRESSION: 1. Unchanged parenchymal hemorrhage, cee-white junction region, left parieto-occipital region. 2. Unremarkable CTA head. 3. Bilateral mild internal carotid artery stenosis, less than 50%. Any quantitative measurements of stenosis were performed using NASCET criteria. Dictated by: Zheng Braun M.D. on 12/10/2022 at 16:00 Approved by: Zheng Braun M.D. on 12/10/2022 at 16:06
[2022-12-10 15:13] LABS: COVID19 -Nasal RAPID Negative (Negative)
[2022-12-10 15:17] LABS: CKMB % Relative Index 1.5 % (1.5-5.0); Creatine Kinase MB 3.24 ng/mL (<2.37)
[2022-12-10] MEDS: lisinopriL 5 MG TABLET PO (15:29)
[2022-12-10 16:11] LABS: UR Morphine/Opiate cutoff 300 Negative (Negative); Ur Creatinine Normal (Normal); Ur Specific Gravity Normal (Normal); Urine Amphetamines Negative (Negative); Urine Barbiturates Negative (Negative); Urine Benzodiazepines Negative (Negative); Urine Cocaine Negative (Negative); Urine MDMA Negative (Negative); Urine Methadone Negative (Negative); Urine Methamphetamines Negative (Negative); Urine Oxycodone Negative (Negative); Urine Phencyclidine Negative (Negative); Urine Tetrahydrocannabinol Negative (Negative); Urine Tricyclic Antidepressant Negative (Negative); Urine pH Normal (Normal)
--- NOTE | 2022-12-10 19:30 | DI.CT.S_ITS ---
PROCEDURE: CT HEAD/BRAIN WO CON INDICATIONS: repeat TECHNIQUE: Noncontrast 4.5 mm thick angled axial sections acquired from the foramen magnum to the vertex, with coronal and sagittal reformats. For radiation dose reduction, the following was used: automated exposure control, adjustment of mA and/or kV according to patient size. COMPARISON: [facility], CT, CT HEAD/BRAIN WO CON, 12/10/2022, 13:52. FINDINGS: Image quality: Excellent. CSF spaces: Basal cisterns are patent. No extra-axial fluid collections. The ventricles are symmetric in size and shape. Brain: Hyperdensity in the left parietal occipital lobe measures approximately 2.3 x 1.8 cm, unchanged. Mild vasogenic edema is present. There is cerebral volume loss for age, with resultant ventricular and sulcal prominence. There are periventricular and deep white matter chronic small vessel ischemic changes. There is intracranial internal carotid artery atherosclerosis. Skull and face: Calvarium and visualized facial bones appear intact, without suspicious lesions. Sinuses: Visualized sinuses and mastoids are clear. IMPRESSION: Unchanged appearance of hemorrhage in the left parietal occipital lobe. While this could represent hypertensive hemorrhage, underlying hemorrhagic mass cannot be excluded and MRI brain with contrast is recommended as follow-up once initial hemorrhage recedes. Dictated by: Yamila Santos M.D. on 12/10/2022 at 19:34 Approved by: Yamila Santos M.D. on 12/10/2022 at 19:35
--- NOTE | 2022-12-10 22:52 | DI.MRI.S_ITS ---
PROCEDURE: MR HEAD/BRAIN WO/W CON INDICATIONS: ich, caa? TECHNIQUE: Noncontrast axial T1 spin echo, axial T2 fast spin echo, sagittal and axial FLAIR, coronal T2 fast spin echo, axial gradient echo, axial diffusion and ADC through the brain. After the administration of contrast, axial and coronal and sagittal 3D VIBE or T1 spin echo with fat saturation through the brain. COMPARISON: [facility], CT, CT HEAD/BRAIN WO CON, 12/10/2022, 19:16. [facility], CT, CT HEAD/BRAIN WO CON, 12/10/2022, 13:52. FINDINGS: Image quality: Excellent. CSF Spaces: Basal cisterns are patent. No extra-axial fluid collections. Ventricles are normal in size and shape. Brain: Susceptibility artifact, restricted diffusion, and peripheral rim enhancement of a left occipital lesion measuring 2.5 by 2 cm similar in size and morphology from comparison CT and consistent with intraparenchymal hemorrhage. Moderate surrounding T2 edema. No midline shift. Within the right temporal lobe there is a small foci of susceptibility artifact which is T2 and T1 hypointense of unclear etiology. The brainstem appears normal. Scattered T2/FLAIR hyperintensities in the periventricular and subcortical white matter. Normal intravascular flow voids are present. Skull and face: Calvarial marrow is normal in signal. Orbits appear normal. Sinuses: Sinuses and mastoids appear clear. IMPRESSION: 1. Expected evolution of intraparenchymal hemorrhage within the left occipital lobe. Recommend follow-up imaging after resolution of acute swelling to exclude underlying mass. 2. Small foci of susceptibility artifact within the right temporal lobe is likely artifactual without CT correlate. Recommend attention on follow-up imaging. Dictated by: Topher Mccarthy M.D. on 12/11/2022 at 8:49 Approved by: Topher Mccarthy M.D. on 12/11/2022 at 9:01
--- NOTE | 2022-12-10 23:13 | P.HP_ITS ---
History of Present Illness History of Present Illness Date Patient Seen: 12/10/22 Time Patient Seen: 23:00 Chief complaint: sent by blurred vision/headache T-7 Narrative: Mr. Contreras is a 77M with PMH hyperlipidemia who presents or a headache. His headache started on 12/06, 4 days ago. He started having blurry vision associated at that time which has not improved nor gotten worse. He otherwise has no other symptoms no speech issues, no lateralizing weakness, no numbness. He has had no falls, trauma, or head strike. In the ED workup was done, vitals notable for afebrile, heart rate in the 50s, blood pressure 180s/80s, 99% on room air. NIH 0. Labs notable for WBC 7.1, hgb 14.3, plts 223. Creatinine 0.93. Trop negative. CT head with 3.2cm parenchymal hemorrhage in the left posterior parietal occipital region. Repeat CT head showed no change. Neurosurgery was contacted and recommended that patient did not need surgery. Neurology recommended blood pressure control and MRI head to evaluate for cause of spontaneous ICH. He was given lisinopril and admitted for further treatment. Patient History Family & Social History Safety & Behavioral: Feels Safe in Current Yes Environment Been Physically Hurt or No Threatened By a Person Tobacco & Substance use: Smoking Status Former smoker alcohol intake frequency 0-2 drinks per day Substance Use Type does not use Meds Home Medications and Allergies Allergies Allergy/AdvReac Type Severity Reaction Status Date / Time No Known Drug Allergies Allergy Verified 12/10/22 13:42 Review of Systems Review of Systems Narrative: 14 systems reviewed and negative aside from what is noted in HPI Exam Vital Signs (past 8 hours): - 12/10/22 15:29 12/10/22 15:30 12/10/22 15:31 Pulse Rate 74 79 71 Blood Pressure 181/82 H Pulse Oximetry 91 99 12/10/22 15:31 12/10/22 16:00 12/10/22 16:16 Pulse Rate 59 L Blood Pressure 181/82 H 155/77 H Pulse Oximetry 98 12/10/22 16:16 12/10/22 16:30 12/10/22 16:30 Pulse Rate 65 65 Blood Pressure 168/78 H Pulse Oximetry 98 99 12/10/22 16:45 12/10/22 16:45 12/10/22 17:00 Pulse Rate 58 L Blood Pressure 137/65 144/70 H Pulse Oximetry 96 12/10/22 17:00 12/10/22 17:15 12/10/22 17:15 Pulse Rate 59 L 61 Blood Pressure 135/72 Pulse Oximetry 97 97 12/10/22 17:30 12/10/22 17:30 12/10/22 17:45 Pulse Rate 60 Blood Pressure 140/70 141/74 H Pulse Oximetry 98 12/10/22 17:45 12/10/22 18:00 12/10/22 18:00 Pulse Rate 61 60 Blood Pressure 138/67 Pulse Oximetry 96 96 12/10/22 18:15 12/10/22 18:15 12/10/22 18:30 Pulse Rate 59 L Blood Pressure 149/80 H 161/76 H Pulse Oximetry 97 12/10/22 18:30 12/10/22 18:45 12/10/22 18:45 Pulse Rate 60 61 Blood Pressure 141/70 H Pulse Oximetry 97 97 12/10/22 19:00 12/10/22 19:00 12/10/22 19:30 Pulse Rate 66 Blood Pressure 172/83 H 172/80 H Pulse Oximetry 97 12/10/22 19:30 12/10/22 19:45 12/10/22 19:45 Pulse Rate 73 66 Blood Pressure 169/82 H Pulse Oximetry 98 97 12/10/22 20:00 12/10/22 20:00 12/10/22 20:30 Pulse Rate 65 Blood Pressure 157/68 H 169/80 H Pulse Oximetry 98 12/10/22 20:30 12/10/22 21:00 12/10/22 21:01 Pulse Rate 69 69 Blood Pressure 187/86 H Pulse Oximetry 97 97 12/10/22 21:01 12/10/22 21:30 12/10/22 21:30 Pulse Rate 68 58 L Blood Pressure 146/73 H Pulse Oximetry 95 96 12/10/22 22:00 12/10/22 22:00 12/10/22 22:29 Pulse Rate 59 L 58 L Blood Pressure 146/77 H Pulse Oximetry 97 95 12/10/22 22:30 Pulse Rate Blood Pressure 159/103 H Pulse Oximetry Oxygen Delivery Method Room Air Narrative Exam Narrative: GEN: no acute distress HEENT: moist mucous membranes, PERRL NECK: trachea midline, no JVD PULM: clear bilaterally, no wheezes, rhonchi, rales CV: regular rate and rhythm, no murmurs ABD: soft, nontender, nondistended, no organomegaly EXT: warm and well perfused with no edema NEURO: awake, alert, oriented, no focal deficits noted, normal upper and lower extremity strength 5/5, CN 2-12 intact, no pronator drift Objective Labs 12/10/22 14:14 12/10/22 14:14 Labs: Laboratory Results - last 24 hr 12/10/22 12/10/22 12/10/22 14:14 14:14 14:14 WBC 7.1 RBC 4.41 L Hgb 14.3 Hct 41.5 MCV 94.1 MCH 32.4 MCHC 34.5 RDW 14.0 Plt Count 223 Neut % (Auto) 60.4 Lymph % (Auto) 27.3 [place] % (Auto) 9.4 Eos % (Auto) 2.1 Baso % (Auto) 0.8 Neut # (Auto) 4300 Lymph # (Auto) 1900 [place] # (Auto) 700 Eos # (Auto) 100 Baso # (Auto) 100 PT 11.5 INR 1.0 APTT 37 H Sodium 138 Potassium 4.1 Chloride 103 Carbon Dioxide 26 BUN 21 H Creatinine 0.93 Estimated GFR > 60 BUN/Creatinine Ratio 22.6 H Glucose 104 Calcium 8.5 Magnesium 2.0 Total Bilirubin 1.1 AST 33 ALT 27 Alkaline Phosphatase 77 Total Creatine Kinase 212 H CK-MB (CK-2) 3.24 H CK-MB (CK-2) Rel Index 1.5 Troponin I < 0.012 Total Protein 7.1 Albumin 4.2 Globulin 2.9 Albumin/Globulin Ratio 1.4 U Opiates 300ng/mL cut Ur Oxycodone Screen Urine Methadone Screen Ur Barbiturates Screen U Tricyclic Antidepress Ur Phencyclidine Scrn Ur Amphetamines Screen U Methamphetamines Scrn Ur MDMA Scrn (Ecstasy) U Benzodiazepines Scrn Urine Cocaine Screen U Marijuana (THC) Screen SARS-CoV-2 (PCR) 12/10/22 12/10/22 14:21 15:53 WBC RBC Hgb Hct MCV MCH MCHC RDW Plt Count Neut % (Auto) Lymph % (Auto) [place] % (Auto) Eos % (Auto) Baso % (Auto) Neut # (Auto) Lymph # (Auto) [place] # (Auto) Eos # (Auto) Baso # (Auto) PT INR APTT Sodium Potassium Chloride Carbon Dioxide BUN Creatinine Estimated GFR BUN/Creatinine Ratio Glucose Calcium Magnesium Total Bilirubin AST ALT Alkaline Phosphatase Total Creatine Kinase CK-MB (CK-2) CK-MB (CK-2) Rel Index Troponin I Total Protein Albumin Globulin Albumin/Globulin Ratio U Opiates 300ng/mL cut Negative Ur Oxycodone Screen Negative Urine Methadone Screen Negative Ur Barbiturates Screen Negative U Tricyclic Antidepress Negative Ur Phencyclidine Scrn Negative Ur Amphetamines Screen Negative U Methamphetamines Scrn Negative Ur MDMA Scrn (Ecstasy) Negative U Benzodiazepines Scrn Negative Urine Cocaine Screen Negative U Marijuana (THC) Screen Negative SARS-CoV-2 (PCR) Negative Assessment & Plan Assessment & Plan narrative: 1. Intracranial hemorrhage, spontaneous -patient presented with blurry vision, started 5 days ago, no trauma -CT head showed 2.3cm intraparenchymal hemorrhage -patient with no history of hypertension -repeat CT head stable -discussion with neurosurgery, recommend medical management, neurology recommend blood pressure control absolute <160 systolic, goal <140 -received lisinopril in ED, will add nifedipine as it is faster acting -initially presented with heart rate in 50s, so beta-blockers not indicated -MRI head ordered to evaluate for possible cerebral amyloid 2. Hyperlipidemia -continue statin I have discussed the plan with patient. I have discussed plan of care with ED physician and bedside nurse. I have reviewed labs, and CT head imaging. CODE: Full Proxy: Ami Contreras, spouse Time Spent With Patient Critical Care time: I spent a total of [] minutes of critical care time on this patient's care today; this time is exclusive of procedural time. Quality [facility] - Meds 'Current medications' to include all prescriptions, ekzh-nvc-ejwgoda products, herbals, cannabis/cannabidiol products, and vitamin/mineral/dietary (nutritional) supplements. I have utilized all available resources to obtain, update, or review the patient?s current medications. [If Yes, STOP here]: Yes
[2022-12-11] VITALS (7 sets, daily range): BP systolic 98–155; BP diastolic 65–75; PULSE 62–99; RESP 15–17; TEMP 35.9–36.4; O2SAT 93–97; BMI 19.2
[2022-12-11] MEDS: NIFEdipine 30 MG TAB ER PO (02:13)
--- NOTE | 2022-12-11 09:30 | PT.IIE ---
Physical Therapy Inpatient Evaluation/Re-Eval M1 PT/OT-IP Prior Functional Status Start: 12/11/22 10:06 Freq: NEEDED Status: Active Protocol: Document 12/11/22 09:30 DLM (Rec: 12/11/22 10:21 [facility] [id number]) Medical Review Prior Functional Status Medical History Reviewed Yes Diet/Fluid Consistency Regular Communication WNL, wears glasses Mobility and Gait Independent without a device, reports recent increase in hip stiffness, chronic right knee pain/stiffness that he manages with stretches. He has hx of surgery on right knee. He reports no difficulty with stairs. He has good balance. 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 Additional Social History Comment pt reports hx of occular migraines at home M2 PT-IP Current Condition Start: 12/11/22 10:06 Freq: NEEDED Status: Active Protocol: Document 12/11/22 09:30 DLM (Rec: 12/11/22 10:21 [facility] [id number]) Physical Therapy Current Condition Current Condition Evaluation Date 12/11/22 Treatment Diagnosis slurred speech, rule out CVA Onset Date 12/10/22 M3 PT-IP Subjective Start: 12/11/22 10:06 Freq: NEEDED Status: Active Protocol: Document 12/11/22 09:30 DLM (Rec: 12/11/22 10:21 [facility] [id number]) Subjective Physical Therapy Visit Type Type Initial Evaluation Visit Start Time 09:05 Visit Stop Time 09:30 Total Visit Minutes 25 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 He reports his symptoms have resolved. He feels he is safe to discharge home. He is worried about his chronic shoulder pain today. Patient Goals Discharge home M4 PT-IP Mobility and Gait Start: 12/11/22 10:06 Freq: NEEDED Status: Active Protocol: Document 12/11/22 09:30 DLM (Rec: 12/11/22 10:21 DL [id number]) PT-Bed Mobility Assessment Rolling Level of Assist Independent Supine to Sit Supine to Sit Independent Sit to Supine Sit to Supine Independent Scooting Scooting to Edge of Bed Independent Scooting Up and Down in Bed Independent PT-Transfer Assessment Sit to and From Stand Sit to and from Stand Independent Equipment Transfer Assistive Device None Transfers Transfer Destination Bed,Chair Transfer Technique Stand Step Pivot Transfer Ability Level of Assist Independent Comments Mobility Comments he can get out of chairs easily without significant UE support Gait Assessment Gait Gait Assistance Required: Independent Distance (Feet) 250 Assistive Devices Assistive Device None Gait Deviations General Gait Pattern Antalgic Comments Gait Comments he demonstrates a safe gait pattern without a device, noted mild and intermittent antalgic pattern with right LE Stair Climbing Assessment Evaluation Level of Assist On Stairs Independent Devices Stair Climbing Assistive Devices None,Left Railing Technique/Endurance Stair Climbing Direction Ascend and Descend Stair Climbing Technique Step Over Step Number of Steps Climbed 3 Query Text: Stair Climbing Set # Repetitions (reps) 2 Comments Stair Climbing Comments he is able to go up/down stairs without rail with safe technique, encouraged pt to use a rail when available to help manage his knee and hip pains PT-Balance Assessment Sitting Balance and Reactions Static Sitting Balance Ability Normal Dynamic Sitting Balance Ability Normal Standing Balance and Reactions Static Standing Balance Ability Good Dynamic Standing Balance Ability Good Device Used none Balance Tests Single Limb Standing right 2-3 sec, left 5 sec Functional Assessments Functional Tests Tinetti Balance and Gait Assessment M5 PT-IP Objective Assessments Start: 12/11/22 10:06 Freq: NEEDED Status: Active Protocol: Document 12/11/22 09:30 [facility] (Rec: 12/11/22 10:21 [facility] [id number]) Orientation Orientation/Cognition Level of Alertness Alert Orientation Name,Age,Birthday,Month,Date, Year,Day of Week,Place, Situation Safety Awareness Decreased Safety Awareness Comments tangential, decreased problem solving, he is very talkative Gross Range of Motion Upper Extremity ROM Assessment Within Functional Limits Impairments he reports crepitus in his shoulders Lower Extremity ROM Assessment Within Functional Limits Strength Upper Extremity Strength Assessment Within Functional Limits Lower Extremity Strength Assessment Within Functional Limits Hip flex 5/5 Knee flex/ext 5/5 Ankle DF 5/5 Coordination Assessment Gross Coordination Gross Coordination WNL Sensation Assessment Sensation Gross Sensation WNL Muscle Tone Muscle Tone WNL Yes M6 PT-IP Treatment Start: 12/11/22 10:06 Freq: NEEDED Status: Active Protocol: Document 12/11/22 09:30 DLM (Rec: 12/11/22 10:21 DLM [id number]) Physical Therapy Treatment Education Education Provided Safety Other Treatments Other Treatment Performed no family present this visit M7 PT-IP Assessment and Plan Start: 12/11/22 10:06 Freq: NEEDED Status: Active Protocol: Document 12/11/22 09:30 DLM (Rec: 12/11/22 10:21 DLM [id number]) PT Summary Assessment and Plan Potential Rehabilitation Potential Good Status of Condition at Evaluation Evolving Summary Assessment Summary Eugene was admitted for slurred speech and feeling like he was floating. His BP was elevated at admission. His brain CT and MRI are negative for acute stroke. He reports his symptoms have resolved. He demonstrates independent mobility and gait without a device. He presents with mild decreased balance on right LE compared to left but may be due to his chronic right knee pain. He appears safe to discharge home with his when he is medically cleared. No skilled physical therapy needs identified while he is hospitalized. Will discharge physical therapy order. Frequency of Treatment Frequency Of Treatment Discharge Treatment Plan Other Recommendations and Next Treatment no skilled physical therapy Focus needs while he is hospitalized Recommendations To Nursing Amount of Assist Needed Independent Discharge Recommendations PT Discharge Recommendations Home Other Discharge Recommendations he has support of his at home Transportation Needs at Discharge Private Vehicle
--- NOTE | 2022-12-11 10:49 | CM.DPNOTE ---
Discharge Planning Note: Patient had MRI earlier, PT and ST pending. Plan: Discharge home to when medically cleared. Maggie Bar RN/DCP
--- NOTE | 2022-12-11 11:10 | PT.IIE ---
Physical Therapy Inpatient Evaluation/Re-Eval M1 PT/OT-IP Prior Functional Status Start: 12/11/22 10:06 Freq: NEEDED Status: Active Protocol: Document 12/11/22 11:10 DLM (Rec: 12/11/22 10:21 [facility] [id number]) Medical Review Prior Functional Status Medical History Reviewed Yes Diet/Fluid Consistency Regular Communication WNL, wears glasses Mobility and Gait Independent with cane or walking sticks, wears compression socks and right AFO. 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 Positive trendelenburg on right during gait. 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 3 steps to enter with rail Employment Status Retired Additional Social History Comment he exercises regularly including UE and LE exercises, walking and doing stairs. His house is for sale, wants a new house with no stairs M2 PT-IP Current Condition Start: 12/11/22 10:06 Freq: NEEDED Status: Active Protocol: Document 12/11/22 11:10 DLM (Rec: 12/11/22 10:21 [facility] [id number]) Physical Therapy Current Condition Current Condition Evaluation Date 12/11/22 Treatment Diagnosis ICH, blurred vision Onset Date 12/10/22 M3 PT-IP Subjective Start: 12/11/22 10:06 Freq: NEEDED Status: Active Protocol: Document 12/11/22 11:10 DLM (Rec: 12/11/22 10:21 [facility] [id number]) Subjective Physical Therapy Visit Type Type Initial Evaluation Visit Start Time 10:30 Visit Stop Time 11:10 Total Visit Minutes 40 Number of CAGE OPERATOR Visits 0 Physical Therapy Visit Comments Patient Comments He reports continued difficulty with his vision with blurriness with reading. He feels his distance vision is normal. He is worried about being able to read and see music. He feels his mobility and gait is normal for him. Patient Goals Discharge home Therapy Pain Assessment Pain Present Pain Present Denied Pain M4 PT-IP Mobility and Gait Start: 12/11/22 10:06 Freq: NEEDED Status: Active Protocol: Document 12/11/22 11:10 DLM (Rec: 12/11/22 10:21 [facility] [id number]) PT-Bed Mobility Assessment Rolling Level of Assist Independent Supine to Sit Supine to Sit Independent Sit to Supine Sit to Supine Independent Scooting Scooting to Edge of Bed Independent Scooting Up and Down in Bed Independent PT-Transfer Assessment Sit to and From Stand Sit to and from Stand Independent,Use of Upper Extremities Equipment Transfer Assistive Device Bed Rail,Tripod Cane/Hurry Cane Transfers Transfer Destination Bed,Chair Transfer Technique Stand Step Pivot Transfer Ability Level of Assist Independent Comments Mobility Comments he can get out of chairs easily with UE support Pt left up in recliner with his needs close Gait Assessment Gait Gait Assistance Required: Independent Distance (Feet) 400 Assistive Devices Assistive Device Gait Belt,Tripod Cane/Hurry Cane Gait Deviations General Gait Pattern Antalgic Factors Limiting Gait Function Factors Limiting Gait Function Decreased Strength Comments Gait Comments he demonstrates a safe gait pattern with his cane and right AFO, he has functional instability with stance on right LE related to his ankle and hip weakness, mild sway during gait but compensates well with the cane Stair Climbing Assessment Evaluation Level of Assist On Stairs Independent Devices Stair Climbing Assistive Devices Tripod Cane/Hurry Cane,Left Railing Technique/Endurance Stair Climbing Direction Ascend and Descend Stair Climbing Technique Step to Step Number of Steps Climbed 3 Query Text: Stair Climbing Set # Repetitions (reps) 1 Comments Stair Climbing Comments he is able to go up/down stairs with rail and cane with safe technique PT-Balance Assessment Sitting Balance and Reactions Static Sitting Balance Ability Normal Dynamic Sitting Balance Ability Normal Standing Balance and Reactions Static Standing Balance Ability Good Dynamic Standing Balance Ability Good Device Used hurry cane from home M5 PT-IP Objective Assessments Start: 12/11/22 10:06 Freq: NEEDED Status: Active Protocol: Document 12/11/22 11:10 RICHI (Rec: 12/11/22 10:21 [facility] [id number]) Orientation Orientation/Cognition Level of Alertness Alert Orientation Name,Age,Birthday,Month,Date, Year,Day of Week,Place, Situation Language Function Ability No Deficits Noted Safety Awareness Understands Safety Issues Memory Description No Deficits Noted Comments pleasant and cooperative, good understanding of current situation Gross Range of Motion Upper Extremity ROM Assessment Within Functional Limits Lower Extremity ROM Assessment Within Functional Limits Strength Upper Extremity Strength Assessment Within Functional Limits Lower Extremity Strength Assessment Right Impaired Hip flex 4+/5 Knee flex/ext 4/5 Ankle DF 2+/5 Comments Strength Comments he has chronic right LE weakness that pt reports has not changed, he wears AFO on right ankle Coordination Assessment Gross Coordination Gross Coordination WNL Sensation Assessment Sensation Gross Sensation Right LE Impaired Light Touch Intact Sensation Description Numbness Comments Sensation Comments mild numbness right LE more distal than proximal since spine surgery Muscle Tone Muscle Tone WNL Yes M6 PT-IP Treatment Start: 12/11/22 10:06 Freq: NEEDED Status: Active Protocol: Document 12/11/22 11:10 DLM (Rec: 12/11/22 10:21 [facility] [id number]) Physical Therapy Treatment Education Education Provided Safety Other Treatments Other Treatment Performed no family present this visit M7 PT-IP Assessment and Plan Start: 12/11/22 10:06 Freq: NEEDED Status: Active Protocol: Document 12/11/22 11:10 DLM (Rec: 12/11/22 10:21 [facility] [id number]) PT Summary Assessment and Plan Potential Rehabilitation Potential Good Status of Condition at Evaluation Evolving Summary Assessment Summary Eugeen is alert and resting in bed. He reports continued impairments in his vision that are affecting his ability to read but not his distance vision. He has chronic right LE weakness following a spine surgery. He reports no changes in his strength today. On evaluation he demonstrates independent mobility and gait with his cane and right AFO. No changes in his symptoms when up ambulating. Pt left up in the recliner this visit. He appears safe to discharge home when medically cleared. No skilled physical therapy needs identified at this time. Will discharge physical therapy. Recommend nursing assist him with keeping paths clear and keeping access to his shoes and right AFO for safer gait. Frequency of Treatment Frequency Of Treatment Discharge Treatment Plan Other Recommendations and Next Treatment no skilled physical therapy Focus needs while he is hospitalized Precautions Other Precautions chronic right LE weakness, wears AFO Recommendations To Nursing Amount of Assist Needed Independent Discharge Recommendations PT Discharge Recommendations Home Other Discharge Recommendations he has support of his at home Transportation Needs at Discharge Private Vehicle
--- NOTE | 2022-12-11 11:17 | CM.DANOTE ---
Initial Discharge Assessment Note: Case reviewed, met with patient. Introduced self and role. Payer: Medicare and [facility] PCP: Umm Daniel 77 year old male referred by and admitted with a history of 4 day headache and blurry vision. Per the CT he hasd a spontaneous ICH. The dizzy vision still persists, his mentation is intact. PT has just completed working with him. He lives in his own home with his spouse Ami in [place]. He is independent in ADLs and drives. Plan: When medically cleared, he will return home to care of spouse. SEJ Discharge Planning/Care Management Advanced directive, confirm from FAMILY Start: 12/11/22 01:01 Freq: Q24H Status: Active Protocol: Document 12/11/22 01:01 CS (Rec: 12/11/22 01:19 CS [id number]) Advance Directive, confirm on record Time 01:19 Person contacted patient Copy received No CM Discharge Assessment Start: 12/11/22 11:05 Freq: Status: Active Protocol: Document 12/11/22 11:05 (Rec: 12/11/22 11:17 [id number]) Discharge Planning Assessment Assigned Manager Managed Care Maggie Bar RN/DCP DPOA/Assigned Designee Name Vandana Bar RN/CAREYP Advance Directives? Yes Advance Directives on File No History Provided By Patient Has Patient been admitted in last 30 No days? Prior Living Arrangements House Household Members spouse Type of transporation used prior to Drives own vehicle admit Independent with ADL's Yes Is patient alert and oriented? Yes Caregiver for Another No Barriers to Discharge No Referrals Initiated None needed Review Status In Process Next Review Type Continued Stay Review
--- NOTE | 2022-12-11 11:31 | PM.DS.1 ---
History of Present Illness History of Present Illness Date Patient Seen: 12/11/22 Chief complaint: sent by blurred vision/headache T-7 Narrative: Per admitting provider, Mr. Contreras is a 77M with PMH hyperlipidemia who presents for a headache. His headache started on 12/06, 4 days ago. He started having blurry vision associated at that time which has not improved nor gotten worse. He otherwise has no other symptoms no speech issues, no lateralizing weakness, no numbness. He has had no falls, trauma, or head strike. In the ED workup was done, vitals notable for afebrile, heart rate in the 50s, blood pressure 180s/80s, 99% on room air. NIH 0. Labs notable for WBC 7.1, hgb 14.3, plts 223. Creatinine 0.93. Trop negative. CT head with 3.2cm parenchymal hemorrhage in the left posterior parietal occipital region. Repeat CT head showed no change. Neurosurgery was contacted and recommended that patient did not need surgery. Neurology recommended blood pressure control and MRI head to evaluate for cause of spontaneous ICH. He was given lisinopril and admitted for further treatment. Discharge Providers Provider Date of admission: 12/10/22 23:10 Discharge Date: 12/11/22 Primary care physician: Umm Sanchez MD Consults: 12/11/22 07:01 Consult to Discharge Planning Routine Comment: Consult to Occupational Therapy Evaluate & Treat Comment: Physician Instructions: Evaluate and treat Consult to Physical Therapy Evaluate & Treat Comment: Physician Instructions: Evaluate and Treat Discharge provider: Lb Perez DO Summary Hospital Course Discharge Diagnosis: 1. Intracranial hemorrhage, spontaneous 2. Hyperlipidemia Hospital Course: This is a 77 year old male with PMH of HLD who presented with blurry vision. Head CT showed an intraparenchymal hemorrhage, which was stable on repeat exam. MRI was performed which again showed a stable bleed, mild edema, but could not rule out underlying mass. He had no worsening of his symptoms, and possibly had slight improvement the following day. Neurosurgery consultation recommended no aggressive management and transfer was not recommended. Therapy evaluation recommended discharge home. I do recommend referral to occupational therapy as an outpatient as no evaluation was able to be performed here due to lack of availability of service during his stay. He was hypertensive, started on BP medications given bleeding, however the following day became mildly hypotensive so medications were stopped. Follow up with primary care is recommended for continued monitoring of his BP. Repeat MRI is recommended as an outpatient after swelling subsides to evaluate for underlying mass per radiologist. Time Spent with Patient Time spent: Greater than 30 minutes Exam Vital Signs (past 8 hours): - 12/11/22 04:41 12/11/22 04:41 12/11/22 08:00 Temperature 97.6 F Pulse Rate 82 Respiratory Rate 15 Blood Pressure 120/66 Pulse Oximetry 96 96 97 Oxygen Delivery Method Room Air Room Air Oxygen Flow Rate 0 0 Oxygen Delivery Method Room Air Oxygen Flow Rate 0 Narrative Exam Narrative: GEN: no acute distress HEENT: moist mucous membranes, PERRL, EOMI NECK: trachea midline, no JVD PULM: clear bilaterally, no wheezes, rhonchi, rales CV: regular rate and rhythm, no murmurs ABD: soft, nontender, nondistended, no organomegaly EXT: warm and well perfused with no edema NEURO: awake, alert, oriented, no focal deficits noted, normal upper and lower extremity strength 5/5, CN 2-12 intact, no pronator drift Objective Labs 12/10/22 14:14 12/10/22 14:14 Labs: Laboratory Results - last 24 hr 12/10/22 12/10/22 12/10/22 14:14 14:14 14:14 WBC 7.1 RBC 4.41 L Hgb 14.3 Hct 41.5 MCV 94.1 MCH 32.4 MCHC 34.5 RDW 14.0 Plt Count 223 Neut % (Auto) 60.4 Lymph % (Auto) 27.3 Sully % (Auto) 9.4 Eos % (Auto) 2.1 Baso % (Auto) 0.8 Neut # (Auto) 4300 Lymph # (Auto) 1900 Sully # (Auto) 700 Eos # (Auto) 100 Baso # (Auto) 100 PT 11.5 INR 1.0 APTT 37 H Sodium 138 Potassium 4.1 Chloride 103 Carbon Dioxide 26 BUN 21 H Creatinine 0.93 Estimated GFR > 60 BUN/Creatinine Ratio 22.6 H Glucose 104 Calcium 8.5 Magnesium 2.0 Total Bilirubin 1.1 AST 33 ALT 27 Alkaline Phosphatase 77 Total Creatine Kinase 212 H CK-MB (CK-2) 3.24 H CK-MB (CK-2) Rel Index 1.5 Troponin I < 0.012 Total Protein 7.1 Albumin 4.2 Globulin 2.9 Albumin/Globulin Ratio 1.4 U Opiates 300ng/mL cut Ur Oxycodone Screen Urine Methadone Screen Ur Barbiturates Screen U Tricyclic Antidepress Ur Phencyclidine Scrn Ur Amphetamines Screen U Methamphetamines Scrn Ur MDMA Scrn (Ecstasy) U Benzodiazepines Scrn Urine Cocaine Screen U Marijuana (THC) Screen SARS-CoV-2 (PCR) 12/10/22 12/10/22 14:21 15:53 WBC RBC Hgb Hct MCV MCH MCHC RDW Plt Count Neut % (Auto) Lymph % (Auto) Sully % (Auto) Eos % (Auto) Baso % (Auto) Neut # (Auto) Lymph # (Auto) Sully # (Auto) Eos # (Auto) Baso # (Auto) PT INR APTT Sodium Potassium Chloride Carbon Dioxide BUN Creatinine Estimated GFR BUN/Creatinine Ratio Glucose Calcium Magnesium Total Bilirubin AST ALT Alkaline Phosphatase Total Creatine Kinase CK-MB (CK-2) CK-MB (CK-2) Rel Index Troponin I Total Protein Albumin Globulin Albumin/Globulin Ratio U Opiates 300ng/mL cut Negative Ur Oxycodone Screen Negative Urine Methadone Screen Negative Ur Barbiturates Screen Negative U Tricyclic Antidepress Negative Ur Phencyclidine Scrn Negative Ur Amphetamines Screen Negative U Methamphetamines Scrn Negative Ur MDMA Scrn (Ecstasy) Negative U Benzodiazepines Scrn Negative Urine Cocaine Screen Negative U Marijuana (THC) Screen Negative SARS-CoV-2 (PCR) Negative [facility] Social History household members: spouse Smoking Status: Former smoker Discharge Plan Discharge Plan Patient Disposition: Home Provider Discharge Comment: You were admitted to the hospital with bleeding in your brain, this likely happened between a few days to a week ago. Repeat imaging was stable. Radiologist could not rule out a mass so repeat MRI is recommended to rule this out once swelling improves. No medication changes are needed, avoid aspirin given bleeding. Do not hesitate to return to the ER if you develop new numbness, tingling, or speech difficulties. Discharge orders & Medications Prescriptions: Continued atorvastatin 10 mg tablet 10 mg 1XD gabapentin 100 mg capsule 100 mg PRN (Reason: Back Pain) Patient Comments: Pt takes as needed for pain, cannot remember when last taken Follow up/Referrals: Umm Sanchez MD [Primary Care Provider] - Diet/Activity/Treatments Diet: Diet as Tolerated Activity: As tolerated Visit Report/Discharge Packet Stand Alone Forms: Patient Portal/API, Stroke Signs & Symptoms Discharge Data Primary Care Provider: Umm Sanchez Attending Provider: Harsh Cardozo VTE Deep Vein Thrombosis/Pulmonary Embolism Present on Admission: No
== END 2022-12-11 13:40 | disposition home or self-care (01) ==
LOC: ED 19:19 → AC 23:11
PROVIDERS: Emergency Medicine; Admitting Provider Internal Medicine; Emergency Provider Emergency Medicine; PCP Family Medicine; Visit Provider Internal Medicine
DX: I61.8 Other nontraumatic intracerebral hemorrhage (principal); H53.8 Other visual disturbances; I95.9 Hypotension, unspecified; R29.700 NIHSS score 0; E78.5 Hyperlipidemia, unspecified; Z20.822 Contact with and (suspected) exposure to COVID-19
CPT/HCPCS: 36415; 70450; 70496; 70498; 70553; 80053; 80305; 81003; 82550; 82553; 82962; 83735; 84484; 85025; 85610; 85730; 87635; 93005; 93010; 97161; 99285; C9803; G0378; Q9967

== ENCOUNTER 2022-12-28 10:55 | Observation (INO) | payer MEDICARE, OTHER, SELFPAY ==
[2022-12-11 00:41] VITALS: BMI 19.2
[2022-12-28] VITALS (29 sets, daily range): BP systolic 122–209; BP diastolic 60–91; PULSE 64–101; RESP 10–92; TEMP 36.3–36.9; O2SAT 82–100; BMI 19.5
--- NOTE | 2022-12-28 11:08 | DI.CT.S_ITS ---
PROCEDURE: CT STROKE INDICATIONS: Positive BE-FAST, Stroke symptoms TECHNIQUE: Noncontrast 4.5 mm thick angled axial sections acquired from the foramen magnum to the vertex, with coronal reformats. For radiation dose reduction, the following was used: automated exposure control, adjustment of mA and/or kV according to patient size. COMPARISON: [facility], CT, CT ANGIO HEAD AND NECK, 12/10/2022, 15:12. [facility], CT, CT HEAD/BRAIN WO CON, 12/10/2022, 19:16. [facility], MR, MR HEAD/BRAIN WO/W CON, 12/11/2022, 8:02. FINDINGS: Image quality: Excellent. CSF spaces: Basal cisterns are patent. No extra-axial fluid collections. The ventricles are symmetric in size and shape. Brain: Interval resolution of hyperdensity related to previous left parieto-occipital cee-white junction region hemorrhage. There is vasogenic edema. Underlying mass cannot be excluded. No interval hemorrhage is period There is cerebral volume loss for age, with resultant ventricular and sulcal prominence. There are periventricular and deep white matter chronic small vessel ischemic changes. There is intracranial internal carotid artery atherosclerosis. Skull and face: Calvarium and visualized facial bones appear intact, without suspicious lesions. Sinuses: Visualized sinuses and mastoids are clear. IMPRESSION: 1. Resolution of hyperattenuation related to previous parenchymal hemorrhage. Continued vasogenic edema. Cannot exclude underlying mass. Comment: Findings were discussed with Dr. Fernandez on 12/28/2022 at 1131 hours This study fulfills neurological imaging criteria for inclusion or exclusion of acute stroke therapies based on available published neurological guidelines. Dictated by: Zheng Braun M.D. on 12/28/2022 at 11:28 Approved by: Zheng Braun M.D. on 12/28/2022 at 11:33
--- NOTE | 2022-12-28 11:08 | DI.RAD.S_ITS ---
PROCEDURE: XR CHEST 1V INDICATIONS: Possible stroke TECHNIQUE: One view of the chest was acquired. COMPARISON: [facility], CR, XR CHEST 1 VIEW, 11/21/2020, 11:48. FINDINGS: Surgical changes and devices: None. Lungs and pleura: Lungs are clear. No pleural effusions or pneumothorax. Right apical opacity is present this was also seen on same day CT angiogram. Mediastinum: Mediastinal contours appear normal. Heart size is normal. Bones and chest wall: No suspicious bony lesions. Overlying soft tissues appear unremarkable. IMPRESSION: No acute radiographic abnormality. Right apical opacity is present, seen on CT angiogram same day. Dictated by: Edward aJrrell M.D. on 12/28/2022 at 12:18 Approved by: Edward Jarrell M.D. on 12/28/2022 at 12:20
[2022-12-28 11:14] LABS: Add Manual Diff / Slide Review NO; Basophils Absolute Auto 0 /uL (0-100); Basophils Percent Auto 0.6 % (0-2); Eosinophils Absolute Auto 100 /uL (0-450); Eosinophils Percent Auto 1.7 % (2-4); Hematocrit 43.2 % (41-53); Hemoglobin 14.5 g/dL (13.5-17.5); Lymphocytes Absolute Auto 1700 /uL (1100-4500); Lymphocytes Percent Auto 32.5 % (25-40); Mean Corpuscular HGB Conc 33.5 % (30-36); Mean Corpuscular Hemoglobin 31.7 PG (26-34); Mean Corpuscular Volume 94.6 fL (80-100); Monocytes Absolute Auto 500 /uL (0-900); Monocytes Percent Auto 9.7 % (3-14); Neutrophils Absolute Auto 2900 /uL (1500-7000); Neutrophils Percent Auto 55.5 % (50-75); Platelet Count 223 X10^3/uL (150-400); Red Blood Cell Count 4.57 X10^6/uL (4.5-5.9); Red Cell Distribution Width 14.2 % (11.6-14.8); White Blood Cell Count 5.3 X10^3/uL (4.5-11.0)
--- NOTE | 2022-12-28 11:14 | DI.CT.S_ITS ---
PROCEDURE: CT ANGIO HEAD AND NECK INDICATIONS: confusion TECHNIQUE: Noncontrast images were performed earlier in the day and not repeated. After the administration of intravenous contrast, 1 mm thick sections acquired from the aortic arch through the [place] of [place]. Post-contrast 4.5 mm thick sections then re-acquired from the foramen magnum to the vertex. 3-dimensional fwoprdd-jyiiqmqch-dyvvecflrg (MIP) and/or volume rendering reformats were acquired of the central intracranial vasculature and neck separately. For radiation dose reduction, the following was used: automated exposure control, adjustment of mA and/or kV according to patient size. COMPARISON: [facility], CT, CT ANGIO HEAD AND NECK, 12/10/2022, 15:12. [facility], CT, CT HEAD/BRAIN WO CON, 12/10/2022, 13:52. [facility], CR, XR CHEST 1V, 12/28/2022, 11:35. [facility], MR, MR HEAD/BRAIN WO/W CON, 12/11/2022, 8:02. [facility], CT, CT STROKE, 12/28/2022, 11:13. FINDINGS: Image quality: This examination is limited by involuntary motion artifact. BRAIN: CSF spaces: Ventricles are normal in size and shape. Basal cisterns are patent. No extra-axial fluid collections. Brain: No midline shift. No intracranial bleeds or masses. 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 Shaw-white matter interface appears intact. Skull and face: Calvarium and facial bones appear intact, without suspicious lesions. Orbits appear normal. Sinuses: Sinuses and mastoids are clear. HEAD CT ANGIOGRAPHY: Anterior circulation: Intracranial internal carotid arteries demonstrate atherosclerotic irregularity, with generalized calcification. Up to 20% narrowing can be seen on each side.. The flow within the paired anterior cerebral arteries is normal and symmetric. The flow within the middle cerebral arteries is normal and symmetric. The anterior communicating artery is seen. No aneurysms are seen. Posterior circulation: Note is made of bilateral type origins of the posterior cerebral arteries, with an associated diminutive basilar artery, which is partially duplicated. The flow within the posterior cerebral arteries is normal and symmetric. The distal vertebral arteries are overall small in size, yet otherwise unremarkable. No aneurysms are seen. NECK CT ANGIOGRAPHY: Carotid system: The great vessels demonstrate a conventional anatomy as they arise from the aortic arch. The origins of the common carotid arteries appear patent. The common carotid arteries demonstrate normal caliber and courses. The bifurcation regions demonstrate atherosclerotic irregularity and calcification. There is 50-60% narrowing seen involving the left proximal internal carotid artery. No hemodynamically significant stenosis can be seen on the right. The more distal internal carotid arteries demonstrate normal course and caliber. Posterior circulation: The origins of the vertebral arteries both appear widely patent. The more superior extracranial portions of both vertebral arteries also demonstrate normal courses and calibers. They join to form a normal appearing basilar artery. Soft tissues: Visualized neck soft tissues demonstrate no suspicious abnormalities. Likely scarring can be seen at the right lung apex. There is a stable right lung apex subpleural nodule seen posteriorly, as on series 11, image 180. Bones: No suspicious bony lesions. Visualized cervical spine appears normally aligned. Moderate cervical spine degenerative change is seen. IMPRESSION: No significant intracranial arterial abnormality is seen. [id number] developmental anomalies are incidentally noted. Within the arteries of the neck, no hemodynamically significant stenosis can be seen. 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 There is 50-60% narrowing seen involving the left internal carotid artery origin. Motion limited study. Additional findings: Moderate cervical spine degenerative change Right lung apex scarring and subpleural nodule Any quantitative measurements of stenosis were performed using NASCET criteria. Dictated by: Ryan Ascencio M.D. on 12/28/2022 at 10:48 Approved by: Ryan Ascencio M.D. on 12/28/2022 at 10:55
--- NOTE | 2022-12-28 11:15 | ED.NEUROSD ---
HPI - Neuro Symptoms/Deficit <Kandice Fernandez DO - Last Filed: 12/28/22 17:56> General Chief Complaint: Neuro Symptoms/Deficit Stated Complaint: symptoms of brain bleed Time Seen by Provider: 12/28/22 11:14 Source: patient Mode of arrival: Ambulatory History of Present Illness HPI Narrative: Patient is a 77-year-old male with history of spinal cord injury many years ago self catheterizations, recent history of intracranial hemorrhage on 12/10/2022. He was admitted here for stable bleeding monitored and discharge. He is had ongoing left-sided blurry vision. reports that this started around 8:00 a.m. today however patient reports it has been ongoing for the last couple of weeks. Certainly has some word trouble issue now which seems to have started within the last 1 hour. Last known well 10:15 a.m.. No numbness tingling or weakness. Confused on year and days. On Anticoagulants: No Related Data Home Medications Medication Instructions Recorded Confirmed atorvastatin 10 mg tablet 10 mg PO DAILY 12/28/22 12/28/22 Allergies Allergy/AdvReac Type Severity Reaction Status Date / Time No Known Drug Allergies Allergy Verified 12/28/22 11:05 Review of Systems <Kandice Fernandez DO - Last Filed: 12/28/22 17:56> Review of Systems ROS Unobtainable: All systems reviewed & are unremarkable except as noted in HPI and below Hematologic/Lymphatic On Anticoagulants: No Patient History <Kandice Fernandez DO - Last Filed: 12/28/22 17:56> Medical History Benign prostatic hyperplasia Intermittent self-catheterization of bladder Neurogenic bladder Urinary retention Surgical History H/O Spinal surgery Family History Mother No pertinent past medical history Father No pertinent past medical history Social History household members: spouse Smoking Status: Former smoker Smoking Status: Former smoker alcohol intake frequency: holidays/special occasions only Substance Use Type: does not use Exam <Kandice Fernandez DO - Last Filed: 12/28/22 17:56> Initial Vital Signs Initial Vital Signs: Vital Signs Temperature 97.4 F L 12/28/22 10:56 Pulse Rate 64 12/28/22 10:56 Respiratory Rate 15 12/28/22 10:56 Blood Pressure 197/91 H 12/28/22 10:56 Pulse Oximetry 95 12/28/22 10:56 Oxygen Delivery Method Room Air 12/28/22 10:56 GENERAL: Alert pleasant well-appearing 77-year-old male HEENT: Head atraumatic,EOMI, pupils reactive, face symmetric, moist mucous membranes CARDIOVASCULAR: Regular rate and rhythm without murmurs, rubs or gallops. RESPIRATORY: Breath sounds equal bilaterally, no wheezes rales or rhonchi. ABDOMEN: Soft, nontender. Normoactive bowel sounds all 4 quadrants. No guarding or rebound. EXTREMITIES: Normal range of motion, no clubbing or edema. Neurovascularly intact NEUROLOGICAL: Alert and oriented x2.Normal gait and speech. Cranial nerves II through XII grossly intact. Good [id number], good [id number], strength equal bilaterally, no sensation in tact to soft touch bilaterally, no visual changes, no facial droop SKIN: Warm, dry, no laceration, no petechiae, no rashes or lesions. <Lb Perez, DO - Last Filed: 12/28/22 19:11> Initial Vital Signs Initial Vital Signs: Vital Signs Temperature 97.4 F L 12/28/22 10:56 Pulse Rate 64 12/28/22 10:56 Respiratory Rate 15 12/28/22 10:56 Blood Pressure 197/91 H 12/28/22 10:56 Pulse Oximetry 95 12/28/22 10:56 Oxygen Delivery Method Room Air 12/28/22 10:56 Scores <Kandice Fernandez, DO - Last Filed: 12/28/22 17:56> NIH Stroke Scale Level of Conciousness: Alert, keenly responsive Ask month/age: Answers one question correctly, intubated follow commands Open/close eyes, close hand: Performs both tasks correctly Best gaze horizontal: Normal Visual santos: No visual loss Facial palsy: Normal symetrical movement Left arm drift: No drift for full 10 sec Right arm drift: No drift for full 10 sec Left leg drift: No drift for full 5 sec Right leg drift: No drift for full 5 sec Limb ataxia: Absent Sensory on face/arms/legs: Normal, no sensory loss Best language: No aphasia, normal Dysarthria: Mild to mod,some slurring Extinction or inattention: No abnormality Total NIH Stroke scale score: 2 <Lb Perez, DO - Last Filed: 12/28/22 19:11> NIH Stroke Scale Total NIH Stroke scale score: 2 Course <Kandice Jim, DO - Last Filed: 12/28/22 17:56> Orders Ordered: ED Orders 12/28/22 11:04 Complete Blood Count AUTO DIFF Stat Comprehensive Metabolic Panel Stat Magnesium Stat PTT Partial Thromboplastin Jordi Stat Prothrombin Time INR Stat Troponin & CK Cardiac Panel Stat 12/28/22 11:06 COVID19 -Nasal RAPID Stat 12/28/22 11:08 CT Stroke Stat XR chest 1V Stat 12/28/22 11:14 CT angio head and neck Stat 12/28/22 11:50 EKG-12 Lead Stat 12/28/22 13:02 MR head/brain wo/w con Stat 12/28/22 16:55 Urinalysis and Microscopic Stat Urine Drug Screen, Rapid Stat Acetaminophen (Acetaminophen 325 Mg Tablet) 650 mg PO Q6H PRN PRN Reason: Fever/Mild Pain (1-3) Atorvastatin Calcium (Atorvastatin 20 Mg Tablet) 10 mg PO BEDTIME JIGNA Levetiracetam (Levetiracetam 250 Mg Tablet) 1,000 mg PO BID JIGNA Naloxone HCl (Naloxone 0.4 Mg/Ml Vial) 0.2 mg IV Q2MIN PRN PRN Reason: Opiate Reversal Ondansetron HCl (Ondansetron 4 Mg/2 Ml Inj) 4 mg IV Q8HR PRN PRN Reason: Nausea And Vomiting Oxycodone HCl (Oxycodone Ir 5 Mg Tablet) 2.5 mg PO Q4HR PRN PRN Reason: Pain, Moderate (4-6) Oxycodone HCl (Oxycodone Ir 5 Mg Tablet) 5 mg PO Q4HR PRN PRN Reason: Pain, Severe (7-10) Discontinued Medications Levetiracetam 1,000 mg/ Sodium (Chloride) 110 mls @ 440 mls/hr IV NOW ONE Stop: 12/28/22 11:52 Last Infusion: 12/28/22 12:20 Dose: 0 mls/hr Documented By: Admin: 12/28/22 12:01 Dose: 440 mls/hr Documented By: AMAYA Lorazepam (Lorazepam 2 Mg/Ml Inj) 2 mg IV NOW ONE Stop: 12/28/22 11:48 Last Admin: 12/28/22 11:47 Dose: 2 mg Documented By: DALTON Morphine Sulfate (Morphine 2 Mg/Ml Inj) 2 mg IV NOW ONE Stop: 12/28/22 16:14 Last Admin: 12/28/22 16:50 Dose: 2 mg Documented By: AMAYA Morphine Sulfate (Morphine 2 Mg/Ml Inj) 2 mg IV NOW ONE Stop: 12/28/22 17:18 Last Admin: 12/28/22 17:25 Dose: 2 mg Documented By: AMAYA Ondansetron HCl (Ondansetron 4 Mg Odt) 4 mg SL NOW PRN PRN Reason: Nausea And Vomiting Ondansetron HCl (Ondansetron 4 Mg/2 Ml Inj) 4 mg IV NOW PRN PRN Reason: Nausea And Vomiting Vital Signs Vital signs: Vital Signs - 8 hr 12/28/22 11:23 12/28/22 11:23 12/28/22 11:30 Pulse Rate 79 Respiratory Rate 10 L Blood Pressure 179/84 H 166/80 H Pulse Oximetry 98 Oxygen Delivery Method 12/28/22 11:30 12/28/22 11:45 12/28/22 11:46 Pulse Rate 75 101 H Respiratory Rate 13 92 H 19 Blood Pressure Pulse Oximetry 97 82 L Oxygen Delivery Method 12/28/22 11:46 12/28/22 11:48 12/28/22 11:48 Pulse Rate 87 Respiratory Rate 35 H Blood Pressure 141/66 H 209/90 H Pulse Oximetry 82 L Oxygen Delivery Method 12/28/22 12:00 12/28/22 12:01 12/28/22 12:01 Pulse Rate 89 89 Respiratory Rate 20 21 Blood Pressure 128/60 Pulse Oximetry 96 100 Oxygen Delivery Method 12/28/22 12:15 12/28/22 12:15 12/28/22 12:30 Pulse Rate 96 H Respiratory Rate 21 Blood Pressure 133/60 133/64 Pulse Oximetry 96 Oxygen Delivery Method 12/28/22 12:30 12/28/22 12:45 12/28/22 12:45 Pulse Rate 95 H 87 Respiratory Rate 17 15 Blood Pressure 129/67 Pulse Oximetry 100 100 Oxygen Delivery Method 12/28/22 13:45 12/28/22 13:00 12/28/22 13:00 Pulse Rate 89 Respiratory Rate 21 Blood Pressure 128/60 Pulse Oximetry 100 Oxygen Delivery Method Room Air 12/28/22 13:15 12/28/22 13:15 12/28/22 13:30 Pulse Rate 90 Respiratory Rate 21 Blood Pressure 122/64 125/67 Pulse Oximetry 100 Oxygen Delivery Method 12/28/22 13:30 12/28/22 13:45 12/28/22 13:45 Pulse Rate 82 87 Respiratory Rate 18 24 Blood Pressure 132/68 Pulse Oximetry 100 97 Oxygen Delivery Method 12/28/22 14:00 12/28/22 14:00 12/28/22 14:43 Pulse Rate 78 76 Respiratory Rate 20 Blood Pressure 128/69 Pulse Oximetry 96 96 Oxygen Delivery Method 12/28/22 14:44 12/28/22 14:44 12/28/22 15:00 Pulse Rate 75 Respiratory Rate 23 Blood Pressure 132/80 140/88 Pulse Oximetry 96 Oxygen Delivery Method 12/28/22 15:00 12/28/22 15:30 12/28/22 15:31 Pulse Rate 84 83 83 Respiratory Rate 20 27 H 28 H Blood Pressure Pulse Oximetry 96 96 97 Oxygen Delivery Method 12/28/22 15:31 12/28/22 16:00 12/28/22 16:00 Pulse Rate 78 Respiratory Rate 28 H Blood Pressure 180/74 H 129/71 Pulse Oximetry 98 Oxygen Delivery Method 12/28/22 16:30 12/28/22 16:31 12/28/22 16:31 Pulse Rate 74 76 Respiratory Rate 14 16 Blood Pressure 154/69 H Pulse Oximetry 98 96 Oxygen Delivery Method <Lb Perez, DO - Last Filed: 12/28/22 19:11> Orders Ordered: ED Orders 12/28/22 11:04 Complete Blood Count AUTO DIFF Stat Comprehensive Metabolic Panel Stat Magnesium Stat PTT Partial Thromboplastin Jordi Stat Prothrombin Time INR Stat Troponin & CK Cardiac Panel Stat 12/28/22 11:06 COVID19 -Nasal RAPID Stat 12/28/22 11:08 CT Stroke Stat XR chest 1V Stat 12/28/22 11:14 CT angio head and neck Stat 12/28/22 11:50 EKG-12 Lead Stat 12/28/22 13:02 MR head/brain wo/w con Stat 12/28/22 16:55 Urinalysis and Microscopic Stat Urine Drug Screen, Rapid Stat Acetaminophen (Acetaminophen 325 Mg Tablet) 650 mg PO Q6H PRN PRN Reason: Fever/Mild Pain (1-3) Atorvastatin Calcium (Atorvastatin 20 Mg Tablet) 10 mg PO BEDTIME JIGNA Levetiracetam (Levetiracetam 250 Mg Tablet) 1,000 mg PO BID JIGNA Naloxone HCl (Naloxone 0.4 Mg/Ml Vial) 0.2 mg IV Q2MIN PRN PRN Reason: Opiate Reversal Ondansetron HCl (Ondansetron 4 Mg/2 Ml Inj) 4 mg IV Q8HR PRN PRN Reason: Nausea And Vomiting Oxycodone HCl (Oxycodone Ir 5 Mg Tablet) 2.5 mg PO Q4HR PRN PRN Reason: Pain, Moderate (4-6) Oxycodone HCl (Oxycodone Ir 5 Mg Tablet) 5 mg PO Q4HR PRN PRN Reason: Pain, Severe (7-10) Discontinued Medications Levetiracetam 1,000 mg/ Sodium (Chloride) 110 mls @ 440 mls/hr IV NOW ONE Stop: 12/28/22 11:52 Last Infusion: 12/28/22 12:20 Dose: 0 mls/hr Documented By: Admin: 12/28/22 12:01 Dose: 440 mls/hr Documented By: AMAYA Lorazepam (Lorazepam 2 Mg/Ml Inj) 2 mg IV NOW ONE Stop: 12/28/22 11:48 Last Admin: 12/28/22 11:47 Dose: 2 mg Documented By: DALTON Morphine Sulfate (Morphine 2 Mg/Ml Inj) 2 mg IV NOW ONE Stop: 12/28/22 16:14 Last Admin: 12/28/22 16:50 Dose: 2 mg Documented By: AMAYA Morphine Sulfate (Morphine 2 Mg/Ml Inj) 2 mg IV NOW ONE Stop: 12/28/22 17:18 Last Admin: 12/28/22 17:25 Dose: 2 mg Documented By: AMAYA Ondansetron HCl (Ondansetron 4 Mg Odt) 4 mg SL NOW PRN PRN Reason: Nausea And Vomiting Ondansetron HCl (Ondansetron 4 Mg/2 Ml Inj) 4 mg IV NOW PRN PRN Reason: Nausea And Vomiting Vital Signs Vital signs: Vital Signs - 8 hr 12/28/22 11:23 12/28/22 11:23 12/28/22 11:30 Pulse Rate 79 Respiratory Rate 10 L Blood Pressure 179/84 H 166/80 H Pulse Oximetry 98 Oxygen Delivery Method 12/28/22 11:30 12/28/22 11:45 12/28/22 11:46 Pulse Rate 75 101 H Respiratory Rate 13 92 H 19 Blood Pressure Pulse Oximetry 97 82 L Oxygen Delivery Method 12/28/22 11:46 12/28/22 11:48 12/28/22 11:48 Pulse Rate 87 Respiratory Rate 35 H Blood Pressure 141/66 H 209/90 H Pulse Oximetry 82 L Oxygen Delivery Method 12/28/22 12:00 12/28/22 12:01 12/28/22 12:01 Pulse Rate 89 89 Respiratory Rate 20 21 Blood Pressure 128/60 Pulse Oximetry 96 100 Oxygen Delivery Method 12/28/22 12:15 12/28/22 12:15 12/28/22 12:30 Pulse Rate 96 H Respiratory Rate 21 Blood Pressure 133/60 133/64 Pulse Oximetry 96 Oxygen Delivery Method 12/28/22 12:30 12/28/22 12:45 12/28/22 12:45 Pulse Rate 95 H 87 Respiratory Rate 17 15 Blood Pressure 129/67 Pulse Oximetry 100 100 Oxygen Delivery Method 12/28/22 13:45 12/28/22 13:00 12/28/22 13:00 Pulse Rate 89 Respiratory Rate 21 Blood Pressure 128/60 Pulse Oximetry 100 Oxygen Delivery Method Room Air 12/28/22 13:15 12/28/22 13:15 12/28/22 13:30 Pulse Rate 90 Respiratory Rate 21 Blood Pressure 122/64 125/67 Pulse Oximetry 100 Oxygen Delivery Method 12/28/22 13:30 12/28/22 13:45 12/28/22 13:45 Pulse Rate 82 87 Respiratory Rate 18 24 Blood Pressure 132/68 Pulse Oximetry 100 97 Oxygen Delivery Method 12/28/22 14:00 12/28/22 14:00 12/28/22 14:43 Pulse Rate 78 76 Respiratory Rate 20 Blood Pressure 128/69 Pulse Oximetry 96 96 Oxygen Delivery Method 12/28/22 14:44 12/28/22 14:44 12/28/22 15:00 Pulse Rate 75 Respiratory Rate 23 Blood Pressure 132/80 140/88 Pulse Oximetry 96 Oxygen Delivery Method 12/28/22 15:00 12/28/22 15:30 12/28/22 15:31 Pulse Rate 84 83 83 Respiratory Rate 20 27 H 28 H Blood Pressure Pulse Oximetry 96 96 97 Oxygen Delivery Method 12/28/22 15:31 12/28/22 16:00 12/28/22 16:00 Pulse Rate 78 Respiratory Rate 28 H Blood Pressure 180/74 H 129/71 Pulse Oximetry 98 Oxygen Delivery Method 12/28/22 16:30 12/28/22 16:31 12/28/22 16:31 Pulse Rate 74 76 Respiratory Rate 14 16 Blood Pressure 154/69 H Pulse Oximetry 98 96 Oxygen Delivery Method MDM - Neuro Symptoms/Deficit <Kandice Fernandez, DO - Last Filed: 12/28/22 17:56> Lab Data 12/28/22 11:04 12/28/22 11:04 Labs: Lab Results 12/28/22 12/28/22 12/28/22 Range/Units 11:04 11:04 11:04 WBC 5.3 (4.5-11.0) X10^3/uL RBC 4.57 (4.5-5.9) X10^6/uL Hgb 14.5 (13.5-17.5) g/dL Hct 43.2 (41-53) % MCV 94.6 (80-100) fL MCH 31.7 (26-34) PG MCHC 33.5 (30-36) % RDW 14.2 (11.6-14.8) % Plt Count 223 (150-400) X10^3/uL Neut % (Auto) 55.5 (50-75) % Lymph % (Auto) 32.5 (25-40) % [place] % (Auto) 9.7 (3-14) % Eos % (Auto) 1.7 L (2-4) % Baso % (Auto) 0.6 (0-2) % Neut # (Auto) 2900 (4645-2570) /uL Lymph # (Auto) 1700 (7173-8171) /uL [place] # (Auto) 500 (0-900) /uL Eos # (Auto) 100 (0-450) /uL Baso # (Auto) 0 (0-100) /uL PT 11.4 (10.1-12.7) SECONDS INR 1.0 (0.9-1.3) APTT 36 (26-36) SECONDS Sodium 137 (137-145) mmol/L Potassium 3.7 (3.4-5.1) mmol/L Chloride 102 (98-107) mmol/L Carbon Dioxide 28 (22-32) mmol/L BUN 18 (9-20) mg/dL Creatinine 0.84 (0.66-1.25) mg/dL Estimated GFR > 60 (>60) mL/min BUN/Creatinine Ratio 21.4 (6-22) Glucose 123 H (80-110) mg/dL Calcium 8.6 (8.4-10.2) mg/dL Magnesium 1.9 (1.6-2.3) mg/dL Total Bilirubin 1.0 (0.2-1.3) mg/dL AST 33 (17-59) IU/L ALT 29 (<50) IU/L Alkaline Phosphatase 70 (38-126) U/L Total Creatine Kinase 149 (55-170) U/L CK-MB (CK-2) 2.66 H (<2.37) ng/mL CK-MB (CK-2) Rel Index 1.8 (1.5-5.0) % Troponin I < 0.012 (0.01-0.034) ng/mL Total Protein 7.4 (6.3-8.2) g/dL Albumin 4.1 (3.5-5.0) g/dL Globulin 3.3 (1.7-4.1) g/dL Albumin/Globulin Ratio 1.2 (1.0-2.8) Urine Color Urine Appearance Urine pH (4.5-8.0) Ur Specific [place] (1.000-1.035) Urine Protein (Negative) Urine Glucose (UA) (Negative) g/dL Urine Ketones (NEGATIVE) Urine Occult Blood (Negative) Urine Nitrate (Negative) Urine Bilirubin (NEGATIVE) Urine Urobilinogen (0.2) E.U./dL Ur Leukocyte Esterase (NEGATIVE) Urine RBC (0-5/HPF) Urine WBC (0-5/HPF) Urine Bacteria (None) Ur Culture Indicated? U Opiates 300ng/mL cut (Negative) Ur Oxycodone Screen (Negative) Urine Methadone Screen (Negative) Ur Barbiturates Screen (Negative) U Tricyclic Antidepress (Negative) Ur Phencyclidine Scrn (Negative) Ur Amphetamines Screen (Negative) U Methamphetamines Scrn (Negative) Ur MDMA Scrn (Ecstasy) (Negative) U Benzodiazepines Scrn (Negative) Urine Cocaine Screen (Negative) U Marijuana (THC) Screen (Negative) SARS-CoV-2 (PCR) (Negative) 12/28/22 12/28/22 12/28/22 Range/Units 11:06 16:55 16:55 WBC (4.5-11.0) X10^3/uL RBC (4.5-5.9) X10^6/uL Hgb (13.5-17.5) g/dL Hct (41-53) % MCV (80-100) fL MCH (26-34) PG MCHC (30-36) % RDW (11.6-14.8) % Plt Count (150-400) X10^3/uL Neut % (Auto) (50-75) % Lymph % (Auto) (25-40) % [place] % (Auto) (3-14) % Eos % (Auto) (2-4) % Baso % (Auto) (0-2) % Neut # (Auto) (8445-6623) /uL Lymph # (Auto) (0271-7660) /uL [place] # (Auto) (0-900) /uL Eos # (Auto) (0-450) /uL Baso # (Auto) (0-100) /uL PT (10.1-12.7) SECONDS INR (0.9-1.3) APTT (26-36) SECONDS Sodium (137-145) mmol/L Potassium (3.4-5.1) mmol/L Chloride (98-107) mmol/L Carbon Dioxide (22-32) mmol/L BUN (9-20) mg/dL Creatinine (0.66-1.25) mg/dL Estimated GFR (>60) mL/min BUN/Creatinine Ratio (6-22) Glucose (80-110) mg/dL Calcium (8.4-10.2) mg/dL Magnesium (1.6-2.3) mg/dL Total Bilirubin (0.2-1.3) mg/dL AST (17-59) IU/L ALT (<50) IU/L Alkaline Phosphatase (38-126) U/L Total Creatine Kinase (55-170) U/L CK-MB (CK-2) (<2.37) ng/mL CK-MB (CK-2) Rel Index (1.5-5.0) % Troponin I (0.01-0.034) ng/mL Total Protein (6.3-8.2) g/dL Albumin (3.5-5.0) g/dL Globulin (1.7-4.1) g/dL Albumin/Globulin Ratio (1.0-2.8) Urine Color Yellow Urine Appearance Clear Urine pH 6.5 (4.5-8.0) Ur Specific [place] 1.010 (1.000-1.035) Urine Protein Negative (Negative) Urine Glucose (UA) Negative (Negative) g/dL Urine Ketones Trace H (NEGATIVE) Urine Occult Blood 2+ H (Negative) Urine Nitrate Negative (Negative) Urine Bilirubin Negative (NEGATIVE) Urine Urobilinogen 0.2 (0.2) E.U./dL Ur Leukocyte Esterase Negative (NEGATIVE) Urine RBC 10-30/hpf H (0-5/HPF) Urine WBC 0-1/hpf (0-5/HPF) Urine Bacteria None seen (None) Ur Culture Indicated? Cult not indicated U Opiates 300ng/mL cut Negative (Negative) Ur Oxycodone Screen Negative (Negative) Urine Methadone Screen Negative (Negative) Ur Barbiturates Screen Negative (Negative) U Tricyclic Antidepress Negative (Negative) Ur Phencyclidine Scrn Negative (Negative) Ur Amphetamines Screen Negative (Negative) U Methamphetamines Scrn Negative (Negative) Ur MDMA Scrn (Ecstasy) Negative (Negative) U Benzodiazepines Scrn Positive H (Negative) Urine Cocaine Screen Negative (Negative) U Marijuana (THC) Screen Negative (Negative) SARS-CoV-2 (PCR) Negative (Negative) Point of Care Testing Glucose POC [address] scan - head: Radiologist's Impression: PROCEDURE:? CT STROKE ? INDICATIONS:? Positive BE-FAST, Stroke symptoms ? TECHNIQUE:? Noncontrast 4.5 mm thick angled axial sections acquired from the foramen magnum to the vertex, with coronal reformats.? For radiation dose reduction, the following was used:? automated exposure control, adjustment of mA and/or kV according to patient size.? ? COMPARISON:? [facility], CT, CT ANGIO HEAD AND NECK, 12/10/2022, 15:12.? [facility], CT, CT HEAD/BRAIN WO CON, 12/10/2022, 19:16.? [facility], MR, MR HEAD/BRAIN WO/W CON, 12/11/2022, 8:02. ? FINDINGS:? Image quality:? Excellent.? ? CSF spaces:? Basal cisterns are patent.? No extra-axial fluid collections.? The ventricles are symmetric in size and shape.? ? Brain:? Interval resolution of hyperdensity related to previous left parieto-occipital shaw-white junction region hemorrhage.? There is vasogenic edema.? Underlying mass cannot be excluded.? No interval hemorrhage is period? There is cerebral volume loss for age, with resultant ventricular and sulcal prominence.? There are periventricular and deep white matter chronic small vessel ischemic changes.? There is intracranial internal carotid artery atherosclerosis.? ? Skull and face:? Calvarium and visualized facial bones appear intact, without suspicious lesions.? ? Sinuses:? Visualized sinuses and mastoids are clear.? ? IMPRESSION:? ? 1. Resolution of hyperattenuation related to previous parenchymal hemorrhage.? Continued vasogenic edema.? Cannot exclude underlying mass. ? Comment: Findings were discussed with Dr. Fernandez on? 12/28/2022 at 1131 hours ? ? This study fulfills neurological imaging criteria for inclusion or exclusion of acute stroke therapies based on available published neurological guidelines.? ? ? Dictated by: Zheng Braun M.D. on 12/28/2022 at 11:28 ? ? CTA - brain/neck: Radiologist's Impression: PROCEDURE:? CT ANGIO HEAD AND NECK ? INDICATIONS:? confusion ? TECHNIQUE:? Noncontrast images were performed earlier in the day and not repeated.? ? After the administration of intravenous contrast, 1 mm thick sections acquired from the aortic arch through the [place].? Post-contrast 4.5 mm thick sections then re-acquired from the foramen magnum to the vertex.? 3-dimensional llwfito-ohgrebatw-ooywchhrox (MIP) and/or volume rendering reformats were acquired of the central intracranial vasculature and neck separately. For radiation dose reduction, the following was used:? automated exposure control, adjustment of mA and/or kV according to patient size.? ? COMPARISON:? [facility], CT, CT ANGIO HEAD AND NECK, 12/10/2022, 15:12.? [facility], CT, CT HEAD/BRAIN WO CON, 12/10/2022, 13:52.? [facility], CR, XR CHEST 1V, 12/28/2022, 11:35.? [facility], MR, MR HEAD/BRAIN WO/W CON, 12/11/2022, 8:02.? [facility], CT, CT STROKE, 12/28/2022, 11:13. ? FINDINGS:? Image quality:? This examination is limited by involuntary motion artifact.? ? BRAIN:? CSF spaces:? Ventricles are normal in size and shape.? Basal cisterns are patent.? No extra-axial fluid collections.? ? Brain:? No midline shift.? No intracranial bleeds or masses.? 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 Shaw-white matter interface appears intact.? ? Skull and face:? Calvarium and facial bones appear intact, without suspicious lesions.? Orbits appear normal.? ? Sinuses:? Sinuses and mastoids are clear.? ? HEAD CT ANGIOGRAPHY:? Anterior circulation:? Intracranial internal carotid arteries demonstrate atherosclerotic irregularity, with generalized calcification.? Up to 20% narrowing can be seen on each side..? The flow within the paired anterior cerebral arteries is normal and symmetric.? The flow within the middle cerebral arteries is normal and symmetric.? The anterior communicating artery is seen.? No aneurysms are seen.? ? Posterior circulation:? Note is made of bilateral type origins of the posterior cerebral arteries, with an associated diminutive basilar artery, which is partially duplicated.? The flow within the posterior cerebral arteries is normal and symmetric.? The distal vertebral arteries are overall small in size, yet otherwise unremarkable.? No aneurysms are seen.? ? NECK CT ANGIOGRAPHY:? Carotid system:? The great vessels demonstrate a conventional anatomy as they arise from the aortic arch.? The origins of the common carotid arteries appear patent.? The common carotid arteries demonstrate normal caliber and courses.? The bifurcation regions demonstrate atherosclerotic irregularity and calcification.? There is 50-60% narrowing seen involving the left proximal internal carotid artery.? No hemodynamically significant stenosis can be seen on the right. The more distal internal carotid arteries demonstrate normal course and caliber.? ? Posterior circulation:? The origins of the vertebral arteries both appear widely patent.? The more superior extracranial portions of both vertebral arteries also demonstrate normal courses and calibers.? They join to form a normal appearing basilar artery.? ? Soft tissues:? Visualized neck soft tissues demonstrate no suspicious abnormalities.? Likely scarring can be seen at the right lung apex.? There is a stable right lung apex subpleural nodule seen posteriorly, as on series 11, image 180. ? Bones:? No suspicious bony lesions.? Visualized cervical spine appears normally aligned.? Moderate cervical spine degenerative change is seen. ? ? IMPRESSION:? No significant intracranial arterial abnormality is seen.? ? [id number] developmental anomalies are incidentally noted. ? ? ? Within the arteries of the neck, no hemodynamically significant stenosis can be seen. ? ? 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 ? There is 50-60% narrowing seen involving the left internal carotid artery origin. ? Motion limited study. ? ? ? Additional findings:? Moderate cervical spine degenerative change Right lung apex scarring and subpleural nodule ? Any quantitative measurements of stenosis were performed using NASCET criteria.? Chest x-ray: Radiologist's Impression: PROCEDURE:? XR CHEST 1V ? INDICATIONS:? Possible stroke ? TECHNIQUE:? One view of the chest was acquired.? ? COMPARISON:? [facility], CR, XR CHEST 1 VIEW, 11/21/2020, 11:48. ? FINDINGS:? ? Surgical changes and devices:? None.? ? Lungs and pleura:? Lungs are clear.? No pleural effusions or pneumothorax.? Right apical opacity is present this was also seen on same day CT angiogram. ? Mediastinum:? Mediastinal contours appear normal.? Heart size is normal.? ? Bones and chest wall:? No suspicious bony lesions.? Overlying soft tissues appear unremarkable.? ? IMPRESSION:? No acute radiographic abnormality. Right apical opacity is present, seen on CT angiogram same day.? ? Dictated by: Edward Jarrell M.D. on 12/28/2022 at 12:18? MR Brain: Radiologist's Impression: PROCEDURE:? MR HEAD/BRAIN WO/W CON ? INDICATIONS:? seizure, prior bleed, ?mass ? TECHNIQUE:? Noncontrast axial T1 spin echo, axial T2 fast spin echo, sagittal and axial FLAIR, coronal T2 fast spin echo, axial gradient echo, axial diffusion and ADC through the brain.? After the administration of contrast, axial and coronal and sagittal T1 spin echo with fat saturation through the brain.? ? COMPARISON:? [facility], MR, MR HEAD/BRAIN WO/W CON, 12/11/2022, 8:02. ? FINDINGS:? Image quality:? Degraded by motion artifact. ? CSF spaces:? Basal cisterns are patent.? No extra-axial fluid collections.? Ventricles are normal in size and shape.? ? Brain:? No midline shift.? No change in small low gradient echo signal intensity within the right temporal lobe.? Left occipital intraparenchymal hemorrhagic focus is present, as before, which is not change in spine is but demonstrates a more chronic appearance with decreased surrounding vasogenic edema.? There is mild peripheral enhancement surrounding this lesion, compatible with expected evolution.? There is a rim of low gradient echo signal intensity surrounding this lesion.? There is cerebral volume loss for age.? There is periventricular white matter chronic small vessel ischemic change.? The brainstem appears normal.? Diffusion-weighted images demonstrate no acute ischemic insults.? No chronic ischemic insults.? Normal intravascular flow voids are present.? ? Skull and face:? Calvarial marrow is normal in signal.? Orbits appear normal.? ? Sinuses:? Sinuses and mastoids appear clear.? ? ? IMPRESSION:? 1. Limited examination demonstrating expected evolution of left occipital Intraparenchymal hemorrhage.? Continued follow-up brain MRI imaging with and without intravenous contrast is recommended to ensure resolution, and to exclude underlying neoplasm. 2. No change in low gradient echo signal intensity focus within the right temporal lobe. 3. Mild volume loss and small vessel ischemic disease.? ? Dictated by: Siena Najera M.D. on 12/28/2022 at 15:00 ECG Data Interpretation: Normal sinus rhythm rate 55 WA interval 184 QRS [address] changes MDM Narrative Medical decision making narrative: Patient 77-year-old male with recent intraparenchymal hemorrhage 2 weeks ago presents today with blurry vision and word-finding difficulty. Difficult to discern last known well possibly within the hour and possible at 8:00 a.m. this morning. He is not tPA candidate with his recent intracranial bleed. He is noted to have dysarthria on exam in be confused. Shortly after his head CT CT angio and blood work he had full tonic-clonic seizure witnessed by myself and staff. 2 mg of Ativan given and then Keppra 1000 mg. Difficult to say if patient's symptoms are postictal from an unwitnessed seizure versus pre seizure versus CVA 12:30Stroke team consulted,, updated patient's symptoms test results at this time thinks patient maybe had a unwitnessed seizure prior to arrival. At this time no need for anti platelet medication. Recommend treating seizure with Keppra. Dr. Perez updated patient's symptoms test results requests MRI and then reconsulting neurology Patient self catheterize secondary to spinal cord injury. Multiple nursing attempts to place catheter. Patient has [address] Goetz consulted in regards to difficult catheterization. He came into the ED and placed catheter Neurology reconsulted, same neurologist has no new further recommendations agrees with Keppra 1000 mg twice a day no antiplatelet therapy repeat MRI in a couple of months to completely rule out mass <Lb Perez, DO - Last Filed: 12/28/22 19:11> Lab Data Labs: Lab Results 12/28/22 12/28/22 12/28/22 Range/Units 11:04 11:04 11:04 WBC 5.3 (4.5-11.0) X10^3/uL RBC 4.57 (4.5-5.9) X10^6/uL Hgb 14.5 (13.5-17.5) g/dL Hct 43.2 (41-53) % MCV 94.6 (80-100) fL MCH 31.7 (26-34) PG MCHC 33.5 (30-36) % RDW 14.2 (11.6-14.8) % Plt Count 223 (150-400) X10^3/uL Neut % (Auto) 55.5 (50-75) % Lymph % (Auto) 32.5 (25-40) % [place] % (Auto) 9.7 (3-14) % Eos % (Auto) 1.7 L (2-4) % Baso % (Auto) 0.6 (0-2) % Neut # (Auto) 2900 (0946-0847) /uL Lymph # (Auto) 1700 (7715-8291) /uL [place] # (Auto) 500 (0-900) /uL Eos # (Auto) 100 (0-450) /uL Baso # (Auto) 0 (0-100) /uL PT 11.4 (10.1-12.7) SECONDS INR 1.0 (0.9-1.3) APTT 36 (26-36) SECONDS Sodium 137 (137-145) mmol/L Potassium 3.7 (3.4-5.1) mmol/L Chloride 102 (98-107) mmol/L Carbon Dioxide 28 (22-32) mmol/L BUN 18 (9-20) mg/dL Creatinine 0.84 (0.66-1.25) mg/dL Estimated GFR > 60 (>60) mL/min BUN/Creatinine Ratio 21.4 (6-22) Glucose 123 H (80-110) mg/dL Calcium 8.6 (8.4-10.2) mg/dL Magnesium 1.9 (1.6-2.3) mg/dL Total Bilirubin 1.0 (0.2-1.3) mg/dL AST 33 (17-59) IU/L ALT 29 (<50) IU/L Alkaline Phosphatase 70 (38-126) U/L Total Creatine Kinase 149 (55-170) U/L CK-MB (CK-2) 2.66 H (<2.37) ng/mL CK-MB (CK-2) Rel Index 1.8 (1.5-5.0) % Troponin I < 0.012 (0.01-0.034) ng/mL Total Protein 7.4 (6.3-8.2) g/dL Albumin 4.1 (3.5-5.0) g/dL Globulin 3.3 (1.7-4.1) g/dL Albumin/Globulin Ratio 1.2 (1.0-2.8) Urine Color Urine Appearance Urine pH (4.5-8.0) Ur Specific [place] (1.000-1.035) Urine Protein (Negative) Urine Glucose (UA) (Negative) g/dL Urine Ketones (NEGATIVE) Urine Occult Blood (Negative) Urine Nitrate (Negative) Urine Bilirubin (NEGATIVE) Urine Urobilinogen (0.2) E.U./dL Ur Leukocyte Esterase (NEGATIVE) Urine RBC (0-5/HPF) Urine WBC (0-5/HPF) Urine Bacteria (None) Ur Culture Indicated? U Opiates 300ng/mL cut (Negative) Ur Oxycodone Screen (Negative) Urine Methadone Screen (Negative) Ur Barbiturates Screen (Negative) U Tricyclic Antidepress (Negative) Ur Phencyclidine Scrn (Negative) Ur Amphetamines Screen (Negative) U Methamphetamines Scrn (Negative) Ur MDMA Scrn (Ecstasy) (Negative) U Benzodiazepines Scrn (Negative) Urine Cocaine Screen (Negative) U Marijuana (THC) Screen (Negative) SARS-CoV-2 (PCR) (Negative) 12/28/22 12/28/22 12/28/22 Range/Units 11:06 16:55 16:55 WBC (4.5-11.0) X10^3/uL RBC (4.5-5.9) X10^6/uL Hgb (13.5-17.5) g/dL Hct (41-53) % MCV (80-100) fL MCH (26-34) PG MCHC (30-36) % RDW (11.6-14.8) % Plt Count (150-400) X10^3/uL Neut % (Auto) (50-75) % Lymph % (Auto) (25-40) % [place] % (Auto) (3-14) % Eos % (Auto) (2-4) % Baso % (Auto) (0-2) % Neut # (Auto) (9024-9384) /uL Lymph # (Auto) (8472-7529) /uL [place] # (Auto) (0-900) /uL Eos # (Auto) (0-450) /uL Baso # (Auto) (0-100) /uL PT (10.1-12.7) SECONDS INR (0.9-1.3) APTT (26-36) SECONDS Sodium (137-145) mmol/L Potassium (3.4-5.1) mmol/L Chloride (98-107) mmol/L Carbon Dioxide (22-32) mmol/L BUN (9-20) mg/dL Creatinine (0.66-1.25) mg/dL Estimated GFR (>60) mL/min BUN/Creatinine Ratio (6-22) Glucose (80-110) mg/dL Calcium (8.4-10.2) mg/dL Magnesium (1.6-2.3) mg/dL Total Bilirubin (0.2-1.3) mg/dL AST (17-59) IU/L ALT (<50) IU/L Alkaline Phosphatase (38-126) U/L Total Creatine Kinase (55-170) U/L CK-MB (CK-2) (<2.37) ng/mL CK-MB (CK-2) Rel Index (1.5-5.0) % Troponin I (0.01-0.034) ng/mL Total Protein (6.3-8.2) g/dL Albumin (3.5-5.0) g/dL Globulin (1.7-4.1) g/dL Albumin/Globulin Ratio (1.0-2.8) Urine Color Yellow Urine Appearance Clear Urine pH 6.5 (4.5-8.0) Ur Specific [place] 1.010 (1.000-1.035) Urine Protein Negative (Negative) Urine Glucose (UA) Negative (Negative) g/dL Urine Ketones Trace H (NEGATIVE) Urine Occult Blood 2+ H (Negative) Urine Nitrate Negative (Negative) Urine Bilirubin Negative (NEGATIVE) Urine Urobilinogen 0.2 (0.2) E.U./dL Ur Leukocyte Esterase Negative (NEGATIVE) Urine RBC 10-30/hpf H (0-5/HPF) Urine WBC 0-1/hpf (0-5/HPF) Urine Bacteria None seen (None) Ur Culture Indicated? Cult not indicated U Opiates 300ng/mL cut Negative (Negative) Ur Oxycodone Screen Negative (Negative) Urine Methadone Screen Negative (Negative) Ur Barbiturates Screen Negative (Negative) U Tricyclic Antidepress Negative (Negative) Ur Phencyclidine Scrn Negative (Negative) Ur Amphetamines Screen Negative (Negative) U Methamphetamines Scrn Negative (Negative) Ur MDMA Scrn (Ecstasy) Negative (Negative) U Benzodiazepines Scrn Positive H (Negative) Urine Cocaine Screen Negative (Negative) U Marijuana (THC) Screen Negative (Negative) SARS-CoV-2 (PCR) Negative (Negative) Point of Care Testing Glucose POC 119 Discharge Plan Departure Patient Disposition: Admitted as Observation Clinical Impression: Seizure
[2022-12-28 11:26] LABS: COVID19 -Nasal RAPID Negative (Negative)
[2022-12-28 11:32] LABS: Alanine Aminotransferase 29 IU/L (<50); Albumin 4.1 g/dL (3.5-5.0); Albumin Globulin Ratio 1.2 (1.0-2.8); Alkaline Phosphatase 70 U/L (38-126); Aspartate Aminotransferase 33 IU/L (17-59); BUN Creatinine Ratio 21.4 (6-22); Blood Urea Nitrogen 18 mg/dL (9-20); Calcium 8.6 mg/dL (8.4-10.2); Carbon Dioxide 28 mmol/L (22-32); Chloride 102 mmol/L (98-107); Creatine Kinase 149 U/L (55-170); Estimated Glomerular Filt Rate > 60 mL/min (>60); Globulin 3.3 g/dL (1.7-4.1); Glucose 123 mg/dL (80-110); HEMOLYSIS < 15 (0-50); Magnesium 1.9 mg/dL (1.6-2.3); Potassium 3.7 mmol/L (3.4-5.1); Sodium 137 mmol/L (137-145); Total Protein 7.4 g/dL (6.3-8.2)
[2022-12-28 11:34] LABS: Prothrombin Time 11.4 SECONDS (10.1-12.7)
--- NOTE | 2022-12-28 11:34 | PC.NURSE ---
Pt arrives POV with . States recent hem CVA 3 weeks ago in which he was hospitalized here at . Pt is not Tpa candidate. Conflicting reports of LKW-- states blurry vision started at 8am however pt states that it has been going on for 3 weeks since his original stroke and it seems to have changed or gotten worse in the last hour. No focal neuro deficits. Having some word finding issues and unable to verbalize items on [facility] visual aid cards. glucose 119. patient taken to and from CT without issue. Mildly hypertensive in 190's on arrival and currently 166/80. NAD. Dr Fernandez at bedside with RN and [facility] 2. Swallow screen passed. Bilateral PIV's. Pt resting on stretcher. NAD.
[2022-12-28 11:36] LABS: PTT Partial Thromboplastin Tim 36 SECONDS (26-36)
[2022-12-28 11:43] LABS: Troponin I < 0.012 ng/mL (0.01-0.034)
[2022-12-28 11:47] LABS: CKMB % Relative Index 1.8 % (1.5-5.0); Creatine Kinase MB 2.66 ng/mL (<2.37)
[2022-12-28] MEDS: LORazepam 2 MG/ML INJ IV (11:47)
[2022-12-28] MEDS: levETIRAcetam 1,000 MG in SODIUM CHLORIDE 0.9% 100 ML 440 MG IV (12:01)
--- NOTE | 2022-12-28 12:49 | PC.NURSE ---
1145: RT in room for EKG, pt started with seizure like activity lasting about 5 min. Pt has been post ictal x 1 hour without improved mentation. Keppra and ativan given for seizure per MAR
--- NOTE | 2022-12-28 13:02 | DI.MRI.S_ITS ---
PROCEDURE: MR HEAD/BRAIN WO/W CON INDICATIONS: seizure, prior bleed, ?mass TECHNIQUE: Noncontrast axial T1 spin echo, axial T2 fast spin echo, sagittal and axial FLAIR, coronal T2 fast spin echo, axial gradient echo, axial diffusion and ADC through the brain. After the administration of contrast, axial and coronal and sagittal T1 spin echo with fat saturation through the brain. COMPARISON: [facility], MR, MR HEAD/BRAIN WO/W CON, 12/11/2022, 8:02. FINDINGS: Image quality: Degraded by motion artifact. CSF spaces: Basal cisterns are patent. No extra-axial fluid collections. Ventricles are normal in size and shape. Brain: No midline shift. No change in small low gradient echo signal intensity within the right temporal lobe. Left occipital intraparenchymal hemorrhagic focus is present, as before, which is not change in spine is but demonstrates a more chronic appearance with decreased surrounding vasogenic edema. There is mild peripheral enhancement surrounding this lesion, compatible with expected evolution. There is a rim of low gradient echo signal intensity surrounding this lesion. There is cerebral volume loss for age. There is periventricular white matter chronic small vessel ischemic change. The brainstem appears normal. Diffusion-weighted images demonstrate no acute ischemic insults. No chronic ischemic insults. Normal intravascular flow voids are present. Skull and face: Calvarial marrow is normal in signal. Orbits appear normal. Sinuses: Sinuses and mastoids appear clear. IMPRESSION: 1. Limited examination demonstrating expected evolution of left occipital Intraparenchymal hemorrhage. Continued follow-up brain MRI imaging with and without intravenous contrast is recommended to ensure resolution, and to exclude underlying neoplasm. 2. No change in low gradient echo signal intensity focus within the right temporal lobe. 3. Mild volume loss and small vessel ischemic disease. Dictated by: Siena Najera M.D. on 12/28/2022 at 15:00 Approved by: Siena Najera M.D. on 12/28/2022 at 15:03
--- NOTE | 2022-12-28 13:14 | PC.NURSE ---
2 attempts at [facility]ina placement with a 16 then a 14F with no success
--- NOTE | 2022-12-28 13:43 | PC.NURSE ---
Pt is becoming more alert post seizure. Able to communicate name and situation. Trialling pt off non rebreather
--- NOTE | 2022-12-28 15:49 | PC.NURSE ---
Pt has to cath self at baseline for spinal cord inj in the past. attempted to catheterize patient with 16F cath. Unsuccessful. Tried at 16F coude without success. Pt tried to cath self without success. bladder scanned with 340ml in bladder. Dr Fernandez made aware.
[2022-12-28] MEDS: MORPHINE 2 MG/ML INJ IV ×2 (16:50→17:25)
--- NOTE | 2022-12-28 16:50 | P.CONS_ITS ---
History of Present Illness Consult details Date Patient Seen: 12/28/22 Time Patient Seen: 04:00 Chief complaint: symptoms of brain bleed Reason for consult: Inability to place catheter Requesting provider: Kandice Fernandez Narrative: This 77-year-old male presented to the emergency department having a couple of weeks ago had a TIA or cerebrovascular accident. While in the emergency department he had a seizure. Apparently since the the patient has been self cathing. He comes with supplies and he reports having come back to himself that he has had no difficulties catheterizing, but in the past providers and nurses have. The emergency department staff say that they had tried with a gets a 16 and a 14 think both straight and coude and had no success. Patient has a rather full bladder and to follow the patient they would like a Angulo catheter to be placed. Angulo catheter placement procedure: After informed consent and agreement of placing a Angulo catheter the patient was prepped with Castile soap and Betadine and draped in a sterile fashion. He then had a Uro jet 2% viscous lidocaine instilled within the urethra. This was followed by more lubricant. Attempt was made to pass an 18 Iranian team and tip catheter and this met with significant resistance. Therefore a 14 Iranian team and tip or coude tip catheter was passed through the urethra and med point of resistance but then released and passed easily into the bladder. The urine obtained was clear yellow without sediment. The balloon was filled with 10 cc of sterile water and the catheter placed to gravity drainage and continued to drain clear yellow urine. There was some return around the catheter of bloody lubricant. But this was minimal and so the catheter was placed to gravity drainage to be admitted and the catheter to be removed when no longer needed. Meds Home Medications and Allergies Home Medications Medication Instructions Recorded Confirmed Type atorvastatin 10 mg tablet 10 mg 1XD 12/11/22 12/11/22 History gabapentin 100 mg capsule 100 mg PRN Back Pain 12/11/22 History Allergies Allergy/AdvReac Type Severity Reaction Status Date / Time No Known Drug Allergies Allergy Verified 12/28/22 11:05 Exam Vital Signs (past 8 hours): - 12/28/22 10:56 12/28/22 11:03 12/28/22 11:03 Temperature 97.4 F L Pulse Rate 64 92 H Respiratory Rate 15 Blood Pressure 197/91 H 197/91 H Pulse Oximetry 95 97 Oxygen Delivery Method Room Air 04/04/23 11:23 12/28/22 11:23 12/28/22 11:30 Temperature Pulse Rate 79 Respiratory Rate 10 L Blood Pressure 179/84 H 166/80 H Pulse Oximetry 98 Oxygen Delivery Method 12/28/22 11:30 12/28/22 11:45 12/28/22 11:46 Temperature Pulse Rate 75 101 H Respiratory Rate 13 92 H 19 Blood Pressure Pulse Oximetry 97 82 L Oxygen Delivery Method 12/28/22 11:46 12/28/22 11:48 12/28/22 11:48 Temperature Pulse Rate 87 Respiratory Rate 35 H Blood Pressure 141/66 H 209/90 H Pulse Oximetry 82 L Oxygen Delivery Method 12/28/22 12:00 12/28/22 12:01 12/28/22 12:01 Temperature Pulse Rate 89 89 Respiratory Rate 20 21 Blood Pressure 128/60 Pulse Oximetry 96 100 Oxygen Delivery Method 12/28/22 12:15 12/28/22 12:15 12/28/22 12:30 Temperature Pulse Rate 96 H Respiratory Rate 21 Blood Pressure 133/60 133/64 Pulse Oximetry 96 Oxygen Delivery Method 12/28/22 12:30 12/28/22 12:45 12/28/22 12:45 Temperature Pulse Rate 95 H 87 Respiratory Rate 17 15 Blood Pressure 129/67 Pulse Oximetry 100 100 Oxygen Delivery Method 12/28/22 13:45 12/28/22 13:00 12/28/22 13:00 Temperature Pulse Rate 89 Respiratory Rate 21 Blood Pressure 128/60 Pulse Oximetry 100 Oxygen Delivery Method Room Air 12/28/22 13:15 12/28/22 13:15 12/28/22 13:30 Temperature Pulse Rate 90 Respiratory Rate 21 Blood Pressure 122/64 125/67 Pulse Oximetry 100 Oxygen Delivery Method 12/28/22 13:30 Temperature Pulse Rate 82 Respiratory Rate 18 Blood Pressure Pulse Oximetry 100 Oxygen Delivery Method Oxygen Delivery Method Room Air Narrative Exam Narrative: General: This is an awake, alert but questionably oriented male who currently appears in no acute distress. Abdomen: Soft, nontender Genitourinary exam: Circumcised male normal meatus normal penis normal scrotum normal testes normal epididymis. Objective Labs 12/28/22 11:04 12/28/22 11:04 Labs: Laboratory Results - last 24 hr 12/28/22 12/28/2212/28/23 11:04 11:04 11:04 WBC 5.3 RBC 4.57 Hgb 14.5 Hct 43.2 MCV 94.6 MCH 31.7 MCHC 33.5 RDW 14.2 Plt Count 223 Neut % (Auto) 55.5 Lymph % (Auto) 32.5 [place] % (Auto) 9.7 Eos % (Auto) 1.7 L Baso % (Auto) 0.6 Neut # (Auto) 2900 Lymph # (Auto) 1700 [place] # (Auto) 500 Eos # (Auto) 100 Baso # (Auto) 0 PT 11.4 INR 1.0 APTT 36 Sodium 137 Potassium 3.7 Chloride 102 Carbon Dioxide 28 BUN 18 Creatinine 0.84 Estimated GFR > 60 BUN/Creatinine Ratio 21.4 Glucose 123 H Calcium 8.6 Magnesium 1.9 Total Bilirubin 1.0 AST 33 ALT 29 Alkaline Phosphatase 70 Total Creatine Kinase 149 CK-MB (CK-2) 2.66 H CK-MB (CK-2) Rel Index 1.8 Troponin I < 0.012 Total Protein 7.4 Albumin 4.1 Globulin 3.3 Albumin/Globulin Ratio 1.2 SARS-CoV-2 (PCR) 12/28/22 11:06 WBC RBC Hgb Hct MCV MCH MCHC RDW Plt Count Neut % (Auto) Lymph % (Auto) [place] % (Auto) Eos % (Auto) Baso % (Auto) Neut # (Auto) Lymph # (Auto) [place] # (Auto) Eos # (Auto) Baso # (Auto) PT INR APTT Sodium Potassium Chloride Carbon Dioxide BUN Creatinine Estimated GFR BUN/Creatinine Ratio Glucose Calcium Magnesium Total Bilirubin AST ALT Alkaline Phosphatase Total Creatine Kinase CK-MB (CK-2) CK-MB (CK-2) Rel Index Troponin I Total Protein Albumin Globulin Albumin/Globulin Ratio SARS-CoV-2 (PCR) Negative [facility] Medical History (Updated 12/28/22 @ 16:57 by Topher Goetz MD) Benign prostatic hyperplasia Intermittent self-catheterization of bladder Neurogenic bladder Urinary retention Social History household members: spouse Tobacco & Substance Use Smoking Status: Former smoker Assessment & Plan Assessment and plan (1) Neurogenic bladder: Status: Acute (2) Urinary retention: Status: Acute (3) Benign prostatic hyperplasia: Qualifiers: Lower urinary tract symptom presence: symptoms present Lower urinary tract symptom detail: urinary retention Qualified Code(s): N40.1 - Benign prostatic hyperplasia with lower urinary tract symptoms; R33.8 - Other retention of urine Status: Acute (4) Intermittent self-catheterization of bladder: Status: Acute Plan Assessment and plan: Patient chronically on intermittent catheterization for a hypotonic neurogenic bladder. 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 Today emergency room staff was unable to catheterize the patient and so I was called in as noted above was able to place a Angulo catheter. The catheter is to gravity drainage and and may be removed when no longer needed by the hospitalist staff patient should follow-up with his previous provider. And it appears that he has supplies for self catheterization once the Angulo catheter is removed. Time Spent With Patient Time with patient: 30 to 49 minutes with 50% spent counseling/coordinating care
--- NOTE | 2022-12-28 16:50 | PC.NURSE ---
Dr Goetz in ED with difficult cath cart to place medina. 14F coude cath placed by Dr Goetz. pt tolerated well with about 200ml output
[2022-12-28 17:18] LABS: Appearance Urine UA CLEAR; Bilirubin Urine UA NEGATIVE (NEGATIVE); Color Urine UA YELLOW; Glucose Urine UA NEGATIVE (Negative); Ketones Urine UA TRACE (NEGATIVE); Leukocyte Esterase Urine UA NEGATIVE (NEGATIVE); Nitrite Urine UA NEGATIVE (Negative); Occult Blood Urine UA 2+ (Negative); Protein Urine UA NEGATIVE (Negative); Urobilinogen Urine UA 0.2 E.U./dL (0.2); pH Urine UA 6.5 (4.5-8.0)
[2022-12-28 17:26] LABS: Bacteria Urine None Seen; Culture Indicated Urine Cult Not Indicated; RBC Urine 10-30/HPF (0-5/HPF); WBC Urine 0-1/HPF (0-5/HPF)
[2022-12-28 17:28] LABS: UR Morphine/Opiate cutoff 300 Negative (Negative); Ur Creatinine Normal (Normal); Ur Specific Gravity Normal (Normal); Urine Amphetamines Negative (Negative); Urine Barbiturates Negative (Negative); Urine Benzodiazepines Positive (Negative); Urine Cocaine Negative (Negative); Urine MDMA Negative (Negative); Urine Methadone Negative (Negative); Urine Methamphetamines Negative (Negative); Urine Oxycodone Negative (Negative); Urine Phencyclidine Negative (Negative); Urine Tetrahydrocannabinol Negative (Negative); Urine Tricyclic Antidepressant Negative (Negative); Urine pH Normal (Normal)
--- NOTE | 2022-12-28 17:47 | PM.HP.1 ---
History of Present Illness History of Present Illness Date Patient Seen: 12/28/22 Time Patient Seen: 18:20 Date of Onset of Symptoms: 12/28/22 Chief complaint: symptoms of brain bleed Narrative: 77 year old male with PMH of HLD, chronic neurogenic bladder with urinary retention, recent intracranial hemorrhage on 12/10 who was discharged the following day after stable exam and no recurrence of bleed. At that time he had left sided visual blurring, he states has been generally improving and was able to read small print books as of yesterday, though he is a bit inconsistent when relaying this history, with his spouse at bedside shaking her head no and refuting some elements of his story. Today his spouse noted word finding difficulties that started early this morning, she stated his words were clear but he had much difficulty finding the correct words. Then, during initial evaluation in the ER, patient had a witnessed tonic - clonic seizure. was at bedside during the seizure, and she states his jaw became clenched first, then had leg and arm shaking / stiffness but did not seem localized to one side. This abated with ativan and he was given 1g of IV keppra as well. Later was given morphine for back pain after seizure. Imaging performed in the emergency room showed expected evolution of his prior bleeding, and stable findings from before including an irregularity of his R occipital lobe. Stroke service / neurology was consulted by the ER physician whom recommended outpatient MRI in a few months, observation for seizure activity, continued keppra at 1000 mg BID, no antiplatelet or blood thinner medications. He was admitted for further management after seziure. [facility]LY [facility] Medical History Benign prostatic hyperplasia Intermittent self-catheterization of bladder Neurogenic bladder Urinary retention Surgical History H/O Spinal surgery Family History Mother No pertinent past medical history Father No pertinent past medical history Social History household members: spouse Smoking Status: Former smoker Meds Home Medications and Allergies Home Medications Medication Instructions Recorded Confirmed Type atorvastatin 10 mg tablet 10 mg PO DAILY 12/28/22 12/28/22 History Allergies Allergy/AdvReac Type Severity Reaction Status Date / Time No Known Drug Allergies Allergy Verified 12/28/22 11:05 Review of Systems Review of Systems Narrative: All other systems reviewed with the patient and are negative unless otherwise stated. Exam Vital Signs (past 8 hours): - 12/28/22 10:56 12/28/22 11:03 12/28/22 11:03 Temperature 97.4 F L Pulse Rate 64 92 H Respiratory Rate 15 Blood Pressure 197/91 H 197/91 H Pulse Oximetry 95 97 Oxygen Delivery Method Room Air 12/28/22 11:23 12/28/22 11:23 12/28/22 11:30 Temperature Pulse Rate 79 Respiratory Rate 10 L Blood Pressure 179/84 H 166/80 H Pulse Oximetry 98 Oxygen Delivery Method 12/28/22 11:30 12/28/22 11:45 12/28/22 11:46 Temperature Pulse Rate 75 101 H Respiratory Rate 13 92 H 19 Blood Pressure Pulse Oximetry 97 82 L Oxygen Delivery Method 12/28/22 11:46 12/28/22 11:48 12/28/22 11:48 Temperature Pulse Rate 87 Respiratory Rate 35 H Blood Pressure 141/66 H 209/90 H Pulse Oximetry 82 L Oxygen Delivery Method 12/28/22 12:00 12/28/22 12:01 12/28/22 12:01 Temperature Pulse Rate 89 89 Respiratory Rate 20 21 Blood Pressure 128/60 Pulse Oximetry 96 100 Oxygen Delivery Method 12/28/22 12:15 12/28/22 12:15 12/28/22 12:30 Temperature Pulse Rate 96 H Respiratory Rate 21 Blood Pressure 133/60 133/64 Pulse Oximetry 96 Oxygen Delivery Method 12/28/22 12:30 12/28/22 12:45 12/28/22 12:45 Temperature Pulse Rate 95 H 87 Respiratory Rate 17 15 Blood Pressure 129/67 Pulse Oximetry 100 100 Oxygen Delivery Method 12/28/22 13:45 12/28/22 13:00 12/28/22 13:00 Temperature Pulse Rate 89 Respiratory Rate 21 Blood Pressure 128/60 Pulse Oximetry 100 Oxygen Delivery Method Room Air 12/28/22 13:15 12/28/22 13:15 12/28/22 13:30 Temperature Pulse Rate 90 Respiratory Rate 21 Blood Pressure 122/64 125/67 Pulse Oximetry 100 Oxygen Delivery Method 12/28/22 13:30 12/28/22 13:45 12/28/22 13:45 Temperature Pulse Rate 82 87 Respiratory Rate 18 24 Blood Pressure 132/68 Pulse Oximetry 100 97 Oxygen Delivery Method 12/28/22 14:00 12/28/22 14:00 12/28/22 14:43 Temperature Pulse Rate 78 76 Respiratory Rate 20 Blood Pressure 128/69 Pulse Oximetry 96 96 Oxygen Delivery Method 12/28/22 14:44 12/28/22 14:44 12/28/22 15:00 Temperature Pulse Rate 75 Respiratory Rate 23 Blood Pressure 132/80 140/88 Pulse Oximetry 96 Oxygen Delivery Method 12/28/22 15:00 12/28/22 15:30 12/28/22 15:31 Temperature Pulse Rate 84 83 83 Respiratory Rate 20 27 H 28 H Blood Pressure Pulse Oximetry 96 96 97 Oxygen Delivery Method 12/28/22 15:31 12/28/22 16:00 12/28/22 16:00 Temperature Pulse Rate 78 Respiratory Rate 28 H Blood Pressure 180/74 H 129/71 Pulse Oximetry 98 Oxygen Delivery Method 12/28/22 16:30 12/28/22 16:31 12/28/22 16:31 Temperature Pulse Rate 74 76 Respiratory Rate 14 16 Blood Pressure 154/69 H Pulse Oximetry 98 96 Oxygen Delivery Method Oxygen Delivery Method Room Air Narrative Exam Narrative: GEN: no acute distress, WDWN HEENT: moist mucous membranes, PERRL, EOMI, NECK: trachea midline, no JVD PULM: clear bilaterally, no wheezes, rhonchi, rales CV: regular rate and rhythm, no murmurs ABD: soft, nontender, nondistended EXT: warm and well perfused with no edema NEURO: awake, alert, oriented but slightly confused and falls asleep easily (after morphine for pain and ativan for seizure), normal upper and lower extremity strength 5/5, CN 2-12 intact, mild pronator drift of L arm medially. Objective ECG Impression: Sinus bradycardia with marked sinus arrhythmia Junctional ST depression, probably normal Labs 12/28/22 11:04 12/28/22 11:04 Labs: Laboratory Results - last 24 hr 12/28/22 12/28/22 12/28/22 11:04 11:04 11:04 WBC 5.3 RBC 4.57 Hgb 14.5 Hct 43.2 MCV 94.6 MCH 31.7 MCHC 33.5 RDW 14.2 Plt Count 223 Neut % (Auto) 55.5 Lymph % (Auto) 32.5 [place] % (Auto) 9.7 Eos % (Auto) 1.7 L Baso % (Auto) 0.6 Neut # (Auto) 2900 Lymph # (Auto) 1700 [place] # (Auto) 500 Eos # (Auto) 100 Baso # (Auto) 0 PT 11.4 INR 1.0 APTT 36 Sodium 137 Potassium 3.7 Chloride 102 Carbon Dioxide 28 BUN 18 Creatinine 0.84 Estimated GFR > 60 BUN/Creatinine Ratio 21.4 Glucose 123 H Calcium 8.6 Magnesium 1.9 Total Bilirubin 1.0 AST 33 ALT 29 Alkaline Phosphatase 70 Total Creatine Kinase 149 CK-MB (CK-2) 2.66 H CK-MB (CK-2) Rel Index 1.8 Troponin I < 0.012 Total Protein 7.4 Albumin 4.1 Globulin 3.3 Albumin/Globulin Ratio 1.2 Urine Color Urine Appearance Urine pH Ur Specific [place] Urine Protein Urine Glucose (UA) Urine Ketones Urine Occult Blood Urine Nitrate Urine Bilirubin Urine Urobilinogen Ur Leukocyte Esterase Urine RBC Urine WBC Urine Bacteria Ur Culture Indicated? U Opiates 300ng/mL cut Ur Oxycodone Screen Urine Methadone Screen Ur Barbiturates Screen U Tricyclic Antidepress Ur Phencyclidine Scrn Ur Amphetamines Screen U Methamphetamines Scrn Ur MDMA Scrn (Ecstasy) U Benzodiazepines Scrn Urine Cocaine Screen U Marijuana (THC) Screen SARS-CoV-2 (PCR) 12/28/22 12/28/22 12/28/22 11:06 16:55 16:55 WBC RBC Hgb Hct MCV MCH MCHC RDW Plt Count Neut % (Auto) Lymph % (Auto) [place] % (Auto) Eos % (Auto) Baso % (Auto) Neut # (Auto) Lymph # (Auto) [place] # (Auto) Eos # (Auto) Baso # (Auto) PT INR APTT Sodium Potassium Chloride Carbon Dioxide BUN Creatinine Estimated GFR BUN/Creatinine Ratio Glucose Calcium Magnesium Total Bilirubin AST ALT Alkaline Phosphatase Total Creatine Kinase CK-MB (CK-2) CK-MB (CK-2) Rel Index Troponin I Total Protein Albumin Globulin Albumin/Globulin Ratio Urine Color Yellow Urine Appearance Clear Urine pH 6.5 Ur Specific [place] 1.010 Urine Protein Negative Urine Glucose (UA) Negative Urine Ketones Trace H Urine Occult Blood 2+ H Urine Nitrate Negative Urine Bilirubin Negative Urine Urobilinogen 0.2 Ur Leukocyte Esterase Negative Urine RBC 10-30/hpf H Urine WBC 0-1/hpf Urine Bacteria None seen Ur Culture Indicated? Cult not indicated U Opiates 300ng/mL cut Negative Ur Oxycodone Screen Negative Urine Methadone Screen Negative Ur Barbiturates Screen Negative U Tricyclic Antidepress Negative Ur Phencyclidine Scrn Negative Ur Amphetamines Screen Negative U Methamphetamines Scrn Negative Ur MDMA Scrn (Ecstasy) Negative U Benzodiazepines Scrn Positive H Urine Cocaine Screen Negative U Marijuana (THC) Screen Negative SARS-CoV-2 (PCR) Negative Assessment & Plan Assessment & Plan narrative: 1. 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 recommended for repeat MRI in 2 months or so as outpatient to rule out mass. No EEG monitoring necessary per neurology - continue keppra 1000 mg BID - ativan if seizure activity. - repeat PT / OT evaluations - suspect initial word finding difficulties related to seizure activity, MRI negative for acute ischemic etiology which is less likely. 2. Hyperlipidemia -continue statin 3. Chronic urinary retention, neurogenic bladder - self catheterizes at home - required urology placement of catheter in the ER, okay to discontinue [facility] when ready for discharge home given difficulty. Urology recommends follow up with his previous outpatient provider. I have discussed the plan with patient and further history obtained from the spouse and family at bedside. I have discussed plan of care with ED physician and bedside nurse. I have personally reviewed labs, and EKG, and imaging. CODE: Full Proxy: Ami Contreras, spouse Dispo: Admit observation, probable discharge tomorrow if no recurrent seizure activity and appears safe based on PT / OT evaluations I have utilized all available immediate resources to obtain, update, or review the patient's current medications. COVID-19 COVID-19 status: Negative Quality MIPS - Admit I confirm the patient?s Advance Care Plan is present, Code status is documented, Surrogate decision maker is in patient?s record [If Yes, STOP here]: Yes
[2022-12-28] MEDS: ATORVASTATIN 20 MG TABLET 10 MG PO (21:21)
[2022-12-28] MEDS: levETIRAcetam 250 MG TABLET 1000 MG PO (21:21)
[2022-12-29 02:00] VITALS: BP 122/62; PULSE 66; RESP 18; TEMP 37; O2SAT 97
[2022-12-29 02:06] VITALS: O2SAT 93
[2022-12-29 05:33] VITALS: BP 124/68; PULSE 76; RESP 18; TEMP 37; O2SAT 94
[2022-12-29 06:00] VITALS: O2SAT 94
[2022-12-29 06:39] LABS: Add Manual Diff / Slide Review NO; Basophils Absolute Auto 100 /uL (0-100); Basophils Percent Auto 0.7 % (0-2); Eosinophils Absolute Auto 100 /uL (0-450); Eosinophils Percent Auto 1.2 % (2-4); Hematocrit 39.2 % (41-53); Hemoglobin 13.2 g/dL (13.5-17.5); Lymphocytes Absolute Auto 1300 /uL (1100-4500); Lymphocytes Percent Auto 15.9 % (25-40); Mean Corpuscular HGB Conc 33.7 % (30-36); Mean Corpuscular Hemoglobin 31.8 PG (26-34); Mean Corpuscular Volume 94.4 fL (80-100); Monocytes Absolute Auto 800 /uL (0-900); Monocytes Percent Auto 9.8 % (3-14); Neutrophils Absolute Auto 5700 /uL (1500-7000); Neutrophils Percent Auto 72.4 % (50-75); Platelet Count 198 X10^3/uL (150-400); Red Blood Cell Count 4.16 X10^6/uL (4.5-5.9); White Blood Cell Count 7.9 X10^3/uL (4.5-11.0)
[2022-12-29 06:53] LABS: Alanine Aminotransferase 24 IU/L (<50); Albumin 3.4 g/dL (3.5-5.0); Albumin Globulin Ratio 1.2 (1.0-2.8); Alkaline Phosphatase 57 U/L (38-126); Aspartate Aminotransferase 32 IU/L (17-59); BUN Creatinine Ratio 21.9 (6-22); Bilirubin Total 1.3 mg/dL (0.2-1.3); Blood Urea Nitrogen 16 mg/dL (9-20); Calcium 8.1 mg/dL (8.4-10.2); Carbon Dioxide 25 mmol/L (22-32); Chloride 106 mmol/L (98-107); Estimated Glomerular Filt Rate > 60 mL/min (>60); Globulin 2.8 g/dL (1.7-4.1); Glucose 97 mg/dL (80-110); HEMOLYSIS < 15 (0-50); Sodium 137 mmol/L (137-145); Total Protein 6.2 g/dL (6.3-8.2)
--- NOTE | 2022-12-29 06:56 | PC.NURSE ---
Pt had difficulty reading the words on the NIHSS printouts. He had some slurring and many misread or missed words, he is normally able to read music and has higher education level. He was able to perform all other tasks WDL from the stroke scale. He reports that he has something like blurry vision still. He also reports that his reading is much improved as he was unable to make any sense of the letters the morning of 12/28. He also had some confusion in pressing the nurses button repeatedly when RN was standing at bedside trying to offer him the bed control to adjust the head of the bed.
[2022-12-29 08:15] VITALS: O2SAT 95
[2022-12-29] MEDS: levETIRAcetam 250 MG TABLET 1000 MG PO (08:24)
[2022-12-29 08:29] VITALS: BP 114/57; PULSE 72; RESP 15; TEMP 37.6; O2SAT 93
[2022-12-29] MEDS: ACETAMINOPHEN 325 MG TABLET 650 MG PO (08:31)
--- NOTE | 2022-12-29 09:45 | PT.IIE ---
Current Diagnoses Neuromuscular dysfunction of bladder, unspecified (12/28/22) Benign prostatic hyperplasia with lower urinary tract symptoms (12/28/22) Other retention of urine (12/28/22) Retention of urine, unspecified (12/28/22) Other specified health status (12/28/22) Surgical History (Last Reviewed 12/28/22 @ 18:36 by Lb Perez DO) H/O Spinal surgery Medical History (Last Reviewed 12/28/22 @ 18:36 by Lb Perez DO) Benign prostatic hyperplasia Intermittent self-catheterization of bladder Neurogenic bladder Urinary retention Physical Therapy Inpatient Evaluation/Re-Eval M1 PT/OT-IP Prior Functional Status Start: 12/29/22 08:18 Freq: NEEDED Status: Active Protocol: Document 12/29/22 09:31 AMB (Rec: 12/29/22 09:45 AMB [id number]) Medical Review Prior Functional Status Medical History Reviewed Yes Social History Household Members spouse Living Arrangements House Number of Stairs To Enter/Railing? 3 steps to enter with a railing Home Equipment Straight Cane Employment Status Retired M2 PT-IP Current Condition Start: 12/29/22 08:18 Freq: NEEDED Status: Active Protocol: Document 12/29/22 09:31 AMB (Rec: 12/29/22 09:45 AMB [id number]) Physical Therapy Current Condition Current Condition Evaluation Date 12/29/22 Treatment Diagnosis impaired gait/balance s/p brain bleed and seizure Onset Date 12/28/22 M3 PT-IP Subjective Start: 12/29/22 08:18 Freq: NEEDED Status: Active Protocol: Document 12/29/22 09:31 AMB (Rec: 12/29/22 09:45 AMB [id number]) Subjective Physical Therapy Visit Type Type Initial Evaluation Visit Start Time 08:45 Visit Stop Time 09:15 Total Visit Minutes 30 Physical Therapy Visit Comments Patient Comments Ready to get up Therapy Pain Assessment Pain When Pain Assessed At Rest Pain Present Pain Present Pain Reported M4 PT-IP Mobility and Gait Start: 12/29/22 08:18 Freq: NEEDED Status: Active Protocol: Document 12/29/22 09:31 AMB (Rec: 12/29/22 09:45 AMB [id number]) PT-Bed Mobility Assessment Rolling Type of Rolling Roll to Left Level of Assist Standby Assistance Supine to Sit Supine to Sit Standby Assistance,Head of Bed Elevated,Bedrails Sit to Supine Sit to Supine Standby Assistance PT-Transfer Assessment Sit to and From Stand Sit to and from Stand Minimal Assistance,1 Person Assistance Equipment Transfer Assistive Device Straight Cane,Front Wheeled Walker Transfers Transfer Destination Bed,Chair Transfer Technique Stand Step Pivot Transfer Ability Level of Assist Contact Guard Assistance Comments Mobility Comments Pt in bed, able to perform all bed mobility with SBA but needed Elise to move from sit to stand from a lower height ( bench), more CGA from a taller seat (bed). Gait Assessment Gait Gait Assistance Required: Contact Guard Assist Distance (Feet) 20 Assistive Devices Assistive Device Gait Belt,Straight Cane,Front Wheeled Walker Gait Deviations General Gait Pattern Ataxic,Decreased Stride Length ,Decreased Feet Clearance Factors Limiting Gait Function Factors Limiting Gait Function Decreased Activity Tolerance, Decreased Strength,Limited Range of Motion,Poor Balance Comments Gait Comments Pt's baseline gait is ambulating with straight cane and AFO. Pt states he does touch down on the huang and furniture at home. Pt had significant posterior lean that patient thinks was present at baseline but is not in prior PT note from previous admission in November. This made this PT nervous enough with the patient's gait that we switched to FWW mid treatment. Per the patient he does not have a walker at home. 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 M6 PT-IP Treatment Start: 12/29/22 08:18 Freq: NEEDED Status: Active Protocol: Document 12/29/22 09:31 AMB (Rec: 12/29/22 09:45 AMB [id number]) Physical Therapy Treatment Education Education Provided Safety Brace Education Patient M7 PT-IP Assessment and Plan Start: 12/29/22 08:18 Freq: NEEDED Status: Active Protocol: Document 12/29/22 09:31 AMB (Rec: 12/29/22 09:45 AMB [id number]) PT Summary Assessment and Plan Potential Rehabilitation Potential Good Summary Impairments Pain,Strength,Balance,Bed Mobility,Transfers,Gait, Activity Tolerance Assessment Summary Eugene is admitted after intracranial hemorrhage last month and a decline in function at home noticed by his , mostly related to his vision. While in the ER the patient had a seizure and was admitted on obs. Pt was able to perform bed mobility with SBA, but gait needed intermittent Elise due to posterior lean and pt needed Elise to move from sit to stand from lower seats. He will need to be trained in stairs later today before he can be discharged home. Per patient he does not have a walker at home and would likely benefit from one, would need to discuss with if she would like one vended or would like to pick one up herself. Goals Bed Mobility Goal Standby Assistance Transfer Goal Standby Assistance Gait Goal Contact Guard Assistance Gait Distance 200 Other Goals Stairs: ascend and descend 3 with one railing with CGA Frequency of Treatment Frequency Of Treatment Twice a Day Treatment Plan Physical Therapy Treatment Plan Bed Mobility Training,Transfer Training,Gait Training Other Recommendations and Next Treatment Stairs. Discuss with pt's Focus if he needs a FWW for gait safety at home. Recommendations To Nursing Amount of Assist Needed 1 Person Assist Discharge Recommendations PT Discharge Recommendations Home with Assistance Equipment Needed for Home Before FWW-- to discuss with Discharge Transportation Needs at Discharge Private Vehicle
--- NOTE | 2022-12-29 09:53 | PC.NURSE ---
Pt resting in bed-states he has 3/10 pain to his back when up or moving but no pain when he is sitting or laying still. Reviewed NIH info with Pt-Pt's speech is clear and he was able to read all of the words clearly except the final word (mold maker plaster) was incorrect as he stated it was raspberry. No difficulty identifying items in pictures. Does not remember having a seizure yesterday. Strength appears equal. Denies headache, dizziness, or numbness.
--- NOTE | 2022-12-29 10:58 | P.DS_ITS ---
History of Present Illness History of Present Illness Date Patient Seen: 12/29/22 Time Patient Seen: 10:30 Chief complaint: symptoms of brain bleed Narrative: 77 year old male with PMH of HLD, chronic neurogenic bladder with urinary retention, recent intracranial hemorrhage on 12/10 who was discharged the following day after stable exam and no recurrence of bleed. At that time he had left sided visual blurring, he states has been generally improving and was able to read small print books as of yesterday, though he is a bit inconsistent when relaying this history, with his spouse at bedside shaking her head no and refuting some elements of his story. Today his spouse noted word finding difficulties that started early this morning, she stated his words were clear but he had much difficulty finding the correct words. Then, during initial evaluation in the ER, patient had a witnessed tonic - clonic seizure. was at bedside during the seizure, and she states his jaw became clenched first, then had leg and arm shaking / stiffness but did not seem localized to one side. This abated with ativan and he was given 1g of IV keppra as well. Later was given morphine for back pain after seizure. Imaging performed in the emergency room showed expected evolution of his prior bleeding, and stable findings from before including an irregularity of his R occipital lobe. Stroke service / neurology was consulted by the ER physician whom recommended outpatient MRI in a few months, observation for seizure activity, continued keppra at 1000 mg BID, no antiplatelet or blood thinner medications. He was admitted for further management after seziure. Discharge Providers Provider Date of admission: 12/28/22 16:57 Discharge Date: 12/29/22 Primary care physician: Umm Sanchez MD Consults: 12/28/22 18:06 Consult to Occupational Therapy Evaluate & Treat Comment: Physician Instructions: Evaluate and treat Consult to Physical Therapy Evaluate & Treat Comment: Physician Instructions: Evaluate and Treat Discharge provider: Lb Perez DO Summary Hospital Course Discharge Diagnosis: 1. 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 Hyperlipidemia 3. Chronic urinary retention, neurogenic bladder Hospital Course: 77 year old male with PMH of HLD, chronic neurogenic bladder with urinary retention, recent intracranial hemorrhage on 12/10 who was discharged the following day after stable exam and no recurrence of bleed who was admitted after suffering a tonic-clonic seizure in the emergency room after being brought in for word finding difficulties and recurrence of visual changes. CTA, MRI show expected evolution of prior hemorrhage, no acute ischemia, but do show some edema which have improved since previous studies. Recommended for repeat MRI in 2 months or so as outpatient to rule out mass. No EEG monitoring necessary per neurology. Patient was started on keppra, 1000 mg BID without recurrence of seizure activity. He required medina placement by urology after his seizure, but was able to straight cath himself prior to discharge home. He did well with therapy evaluations and was discharged home on HD#1. Time Spent with Patient Time spent: Greater than 30 minutes Exam Vital Signs (past 8 hours): - 12/29/22 05:33 12/29/22 06:00 12/29/22 08:29 Temperature 98.6 F 99.7 F H Pulse Rate 76 72 Respiratory Rate 18 15 Blood Pressure 124/68 114/57 L Pulse Oximetry 94 94 93 Oxygen Delivery Method Room Air Oxygen Flow Rate 0 0 12/29/22 08:15 Temperature Pulse Rate Respiratory Rate Blood Pressure Pulse Oximetry 95 Oxygen Delivery Method Room Air Oxygen Flow Rate 0 Oxygen Delivery Method Room Air Oxygen Flow Rate 0 Narrative Exam Narrative: GEN: no acute distress, WDWN HEENT: moist mucous membranes, PERRL, EOMI, NECK: trachea midline, no JVD PULM: clear bilaterally, no wheezes, rhonchi, rales CV: regular rate and rhythm, no murmurs ABD: soft, nontender, nondistended EXT: warm and well perfused with no edema NEURO: awake, alert, normal upper and lower extremity strength 5/5, CN 2-[address] Objective Labs 12/29/22 06:14 12/29/22 06:14 Labs: Laboratory Results - last 24 hr 12/28/22 12/28/22 12/28/22 11:04 11:04 11:04 WBC 5.3 RBC 4.57 Hgb 14.5 Hct 43.2 MCV 94.6 MCH 31.7 MCHC 33.5 RDW 14.2 Plt Count 223 Neut % (Auto) 55.5 Lymph % (Auto) 32.5 [place] % (Auto) 9.7 Eos % (Auto) 1.7 L Baso % (Auto) 0.6 Neut # (Auto) 2900 Lymph # (Auto) 1700 [place] # (Auto) 500 Eos # (Auto) 100 Baso # (Auto) 0 PT 11.4 INR 1.0 APTT 36 Sodium 137 Potassium 3.7 Chloride 102 Carbon Dioxide 28 BUN 18 Creatinine 0.84 Estimated GFR > 60 BUN/Creatinine Ratio 21.4 Glucose 123 H Calcium 8.6 Magnesium 1.9 Total Bilirubin 1.0 AST 33 ALT 29 Alkaline Phosphatase 70 Total Creatine Kinase 149 CK-MB (CK-2) 2.66 H CK-MB (CK-2) Rel Index 1.8 Troponin I < 0.012 Total Protein 7.4 Albumin 4.1 Globulin 3.3 Albumin/Globulin Ratio 1.2 Urine Color Urine Appearance Urine pH Ur Specific [place] Urine Protein Urine Glucose (UA) Urine Ketones Urine Occult Blood Urine Nitrate Urine Bilirubin Urine Urobilinogen Ur Leukocyte Esterase Urine RBC Urine WBC Urine Bacteria Ur Culture Indicated? U Opiates 300ng/mL cut Ur Oxycodone Screen Urine Methadone Screen Ur Barbiturates Screen U Tricyclic Antidepress Ur Phencyclidine Scrn Ur Amphetamines Screen U Methamphetamines Scrn Ur MDMA Scrn (Ecstasy) U Benzodiazepines Scrn Urine Cocaine Screen U Marijuana (THC) Screen SARS-CoV-2 (PCR) 12/28/22 12/28/22 12/28/22 11:06 16:55 16:55 WBC RBC Hgb Hct MCV MCH MCHC RDW Plt Count Neut % (Auto) Lymph % (Auto) [place] % (Auto) Eos % (Auto) Baso % (Auto) Neut # (Auto) Lymph # (Auto) [place] # (Auto) Eos # (Auto) Baso # (Auto) PT INR APTT Sodium Potassium Chloride Carbon Dioxide BUN Creatinine Estimated GFR BUN/Creatinine Ratio Glucose Calcium Magnesium Total Bilirubin AST ALT Alkaline Phosphatase Total Creatine Kinase CK-MB (CK-2) CK-MB (CK-2) Rel Index Troponin I Total Protein Albumin Globulin Albumin/Globulin Ratio Urine Color Yellow Urine Appearance Clear Urine pH 6.5 Ur Specific [place] 1.010 Urine Protein Negative Urine Glucose (UA) Negative Urine Ketones Trace H Urine Occult Blood 2+ H Urine Nitrate Negative Urine Bilirubin Negative Urine Urobilinogen 0.2 Ur Leukocyte Esterase Negative Urine RBC 10-30/hpf H Urine WBC 0-1/hpf Urine Bacteria None seen Ur Culture Indicated? Cult not indicated U Opiates 300ng/mL cut Negative Ur Oxycodone Screen Negative Urine Methadone Screen Negative Ur Barbiturates Screen Negative U Tricyclic Antidepress Negative Ur Phencyclidine Scrn Negative Ur Amphetamines Screen Negative U Methamphetamines Scrn Negative Ur MDMA Scrn (Ecstasy) Negative U Benzodiazepines Scrn Positive H Urine Cocaine Screen Negative U Marijuana (THC) Screen Negative SARS-CoV-2 (PCR) Negative 12/29/22 12/29/22 06:14 06:14 WBC 7.9 RBC 4.16 L Hgb 13.2 L Hct 39.2 L MCV 94.4 MCH 31.8 MCHC 33.7 RDW 14.0 Plt Count 198 Neut % (Auto) 72.4 Lymph % (Auto) 15.9 L [place] % (Auto) 9.8 Eos % (Auto) 1.2 L Baso % (Auto) 0.7 Neut # (Auto) 5700 Lymph # (Auto) 1300 [place] # (Auto) 800 Eos # (Auto) 100 Baso # (Auto) 100 PT INR APTT Sodium 137 Potassium 4.0 Chloride 106 Carbon Dioxide 25 BUN 16 Creatinine 0.73 Estimated GFR > 60 BUN/Creatinine Ratio 21.9 Glucose 97 Calcium 8.1 L Magnesium 2.0 Total Bilirubin 1.3 AST 32 ALT 24 Alkaline Phosphatase 57 Total Creatine Kinase CK-MB (CK-2) CK-MB (CK-2) Rel Index Troponin I Total Protein 6.2 L Albumin 3.4 L Globulin 2.8 Albumin/Globulin Ratio 1.2 Urine Color Urine Appearance Urine pH Ur Specific [place] Urine Protein Urine Glucose (UA) Urine Ketones Urine Occult Blood Urine Nitrate Urine Bilirubin Urine Urobilinogen Ur Leukocyte Esterase Urine RBC Urine WBC Urine Bacteria Ur Culture Indicated? U Opiates 300ng/mL cut Ur Oxycodone Screen Urine Methadone Screen Ur Barbiturates Screen U Tricyclic Antidepress Ur Phencyclidine Scrn Ur Amphetamines Screen U Methamphetamines Scrn Ur MDMA Scrn (Ecstasy) U Benzodiazepines Scrn Urine Cocaine Screen U Marijuana (THC) Screen SARS-CoV-2 (PCR) PFSH Medical History Benign prostatic hyperplasia Intermittent self-catheterization of bladder Neurogenic bladder Urinary retention Surgical History H/O Spinal surgery Family History Mother No pertinent past medical history Father No pertinent past medical history Social History household members: spouse Smoking Status: Former smoker Discharge Plan Discharge Plan Patient Disposition: Home Provider Discharge Comment: You were admitted to the hospital with word finding difficulties and then suffered a seizure in the emergency room. Antiseizure medication has been started, MRI recommended in another 2-3 months per discussion with neurology salesperson household appliances at [facility]. Discharge orders & Medications Prescriptions: New levetiracetam 1,000 mg tablet 1,000 mg PO BID 90 Days Qty: 180 0RF Continued atorvastatin 10 mg tablet 10 mg PO DAILY Follow up/Referrals: Umm Sanchez MD [Primary Care Provider] - Diet/Activity/Treatments Diet: Diet as Tolerated Activity: As tolerated Visit Report/Discharge Packet Instructions: DI for Seizure Disorder -- Adult, DI for Seizure (Not Epilepsy/Seizure Disorder), Levetiracetam, Seizure Safety Precautions-Adult Stand Alone Forms: Patient Portal/API, Stroke Signs & Symptoms Discharge Data Primary Care Provider: Umm Sanchez Attending Provider: Lb Perez Admit Date/Time: 12/28/22 16:57 Discharges patient from system. Discharge Date/Time: 12/29/22 13:01
--- NOTE | 2022-12-29 11:32 | CM.DANOTE ---
DC Assessment: Patient is a 77 yr old male who was admitted under OBS for Seizure caused by interracial bleed. CM met with patient and his at the bedside and explained role. Patient was A&O x4 during meeting and was able to answer CM questions without any problems. Patient lives with his here in [place] and plans on DC home with his today. patient is Independent at baseline with driving and ADLS. CM asked if the patient would like to work with HH for PT or OT patient said no he can manage without HH services. PCP: Umm Sanchez Insurance: [facility] medical Plan: DC home with when medically stable no HH or SNF at this time per Patient CM will continue to follow to help support patient with any new DC needs as they arise prior to DC home. Raquel Ragsdale RNliquor store manager Discharge Planning/Care Management Advanced directive, confirm from FAMILY Start: 12/28/22 18:52 Freq: Q24H Status: Active Protocol: Document 12/28/22 18:52 LW (Rec: 12/28/22 18:53 LW [id number]) Advance Directive, confirm on record Time 18:52 Person contacted patient Copy received No Advanced directive available on record No CM Discharge Assessment Start: 12/29/22 11:29 Freq: Status: Active Protocol: Document 12/29/22 11:30 HS (Rec: 12/29/22 11:32 HS [id number]) Discharge Planning Assessment Assigned Biodiesel Engine Specialist Raquel Ragsdale RNliquor store manager DPOA/Assigned Designee Name Ami Contreras- Spouse Advance Directives? Yes Advance Directives on File No History Provided By Patient,Family Member,Medical Record Prior Living Arrangements House Household Members spouse Type of transporation used prior to Drives own vehicle admit Independent with ADL's Yes Is patient alert and oriented? Yes DME Already Rented / Owned FWW / Walker Comment Patient not open to having HH services at this time Barriers to Discharge No Discharge Plan Home Referrals Initiated None needed Medicare Choice List Provided No Medicare choice list reviewed on patient electronic tablet with SNF/HH Preference Patient not open to HH or SNF services Whiteboard Updated in Patient Room with Yes name and ext. # of Biodiesel Engine Specialist Review Status In Process Next Review Type Continued Stay Review
--- NOTE | 2022-12-29 12:46 | PC.NURSE ---
Pt is dressed and ready for discharge home with Spouse. IV's and Catheter have been removed. Reviewed d/c instructions with Pt and Spouse, reviewed stroke education and follow up with Neuro and PCP. Pt will be taken out via w/c by PRODUCTION FINISHER to POV with Spouse and all belongings.
== END 2022-12-29 13:01 | disposition home or self-care (01) ==
LOC: ED 13:09 → AC 16:58
PROVIDERS: Admitting Provider Internal Medicine; Emergency Provider Emergency Medicine; PCP Family Medicine; Referring Provider Emergency Medicine; Visit Provider Internal Medicine
DX: R47.01 Aphasia (principal); G40.89 Other seizures; R00.1 Bradycardia, unspecified; N31.9 Neuromuscular dysfunction of bladder, unspecified; N40.1 Benign prostatic hyperplasia with lower urinary tract symptoms; R33.8 Other retention of urine; R29.702 NIHSS score 2; E78.5 Hyperlipidemia, unspecified; Z20.822 Contact with and (suspected) exposure to COVID-19
CPT/HCPCS: 36415; 51798; 70450; 70496; 70498; 70553; 71045; 80053; 80305; 81001; 82550; 82553; 82962; 83735; 84484; 85025; 85610; 85730; 87635; 93005; 93010; 96365; 96375; 96376; 97161; 99285; 99291; 99292; C9803; G0378; J1953; J2060; J2270; Q9967